=== PATIENT | female | born 1990 | race Caucasian/White ===

== ENCOUNTER 2024-03-31 14:02 | Outpatient (REF) | payer OTHER, SELFPAY ==
[2024-03-31 15:53] LABS: Internal Control Within Normal Limits; SARS-CoV-2 Ag NEGATIVE (NEGATIVE)
== END 2024-03-31 14:03 | disposition home or self-care (01) ==
LOC: LAB 14:02
PROVIDERS: PCP Family Medicine; Visit Provider Family Medicine
DX: R05.9 Cough, unspecified (principal)
CPT/HCPCS: 87811

== ENCOUNTER 2024-11-10 09:09 | Outpatient (OUT) | payer OTHER, SELFPAY ==
--- NOTE | 2024-11-10 09:16 | XR_ITS ---
The [address] [address] Patient Name: RUDOLPH CAROLINA MRN: [id number] date: 1990 Sex: F Assigned Patient Location: [facility] Current Patient Location: [facility] Accession/Order Number: [id number] Exam Date: 11/10/2024 15:03 Report Date: 11/10/2024 15:04 At the request of: MOON ADKINS MD Procedure: XR knee RT 3V RIGHT KNEE - 3 views COMPARISON: 08/15/2021 CLINICAL DATA: Right knee pain posteriorly, greater with ambulating. Recent fall. AP, lateral and internal oblique views were obtained. No fracture or dislocation is identified. There is no disproportionate joint space narrowing. There is slight squaring off of the articular margins at the posterior patella. There is no significant knee effusion or soft tissue swelling. XR/XR knee RT 3V IMPRESSION: NO ACUTE BONY FINDINGS. Impression dictated by: Lilibeth Cho M.D.11/10/2024 3:04 PM Dictation Location: [place] [address] Electronically authenticated by: [id number] Y Date: 11/10/2024 15:04
--- NOTE | 2024-11-10 09:17 | MR_ITS ---
The [address] [address] Patient Name: RUDOLPH CAROLINA MRN: [id number] date: 1990 Sex: F Assigned Patient Location: [facility] Current Patient Location: [facility] Accession/Order Number: [id number] Exam Date: 11/10/2024 15:40 Report Date: 11/10/2024 15:46 At the request of: MOON ADKINS MD Procedure: MR knee RT wo con EXAMINATION: MRI OF THE RIGHT KNEE CLINICAL DATA: Right knee pain for 2 months. No known injury. COMPARISON: none TECHNIQUE: Multiecho, multiplanar imaging was performed with use of an extremity coil. No contrast was administered. FINDINGS: Joint:Moderate joint effusion. There appears be chondromalacia involving the patella with associated mild bone marrow edema. Articular cartilage of the femur appears grossly unremarkable. Femoral condyles and tibia demonstrate no fracture or bone marrow edema. Soft tissues: Normal Quadriceps/Patellar tendon/retinaculum: Normal Muscles: Normal ACL:Normal PCL:Normal Medial Meniscus:Normal Lateral Meniscus:Normal MCL:Normal LCL complex: Normal MR/MR knee RT wo con IMPRESSION: MODERATE JOINT EFFUSION WITH CHONDROMALACIA INVOLVING THE PATELLA WITH SMALL AMOUNT OF BONE MARROW EDEMA NOTED. NO EVIDENCE OF FRACTURE OR INTERNAL DERANGEMENT IS SEEN. Impression dictated by: Desiree Camara Jr.OGuillermo11/10/2024 3:46 PM Dictation Location: [place] [address] Electronically authenticated by: [id number] Y Date: 11/10/2024 15:46
--- OUTSIDE RECORDS SUMMARY | 2024-11-10 09:29 | XMS_ITS | CCD ---
Author Organization [facility] Inform ion [facility] Care Team Providers Care Screening Specialist Name Role Phone Mariana, Beulah Breana Unavailable Unavailab le Mariana, Beulah Breana Unavailable Unavailab le Pam Zac Unavailable Unavailable Moon Swift Unavailable Unavailable Mariana, Beulah Breana Unavailable Unavailab Moon Ashraf Unavailable Unavailable Mariana, Beulah Breana Unavailable Unavailab Moon Ashraf Unavailable Unavailable Mariana, Beulah Breana Unavailable Unavailab Moon Ashraf Unavailable Unavailable PHYSICIAN, DEFAULT Unavailable Unavailable PHYSICIAN, DEFAULT Unavailable Unavailable Moon Swift Primary Care Physician [phone] Hilton Joshi Unavailable PAVEL BURNETTE Admitting Unavailable PAVEL BURNETTE Primary Care Unavailable PAVEL BURNETTE Attending Unavailable NILL ., DR LAUREN Consulting Unavailable NILL ., DR LAUREN Attending Unavailable NILL ., DR LAUREN Admitting Unavailable HOY ., DR MUSTAFA Primary Care Unavailable HOY ., DR MUSTAFA Attending Unavailable PAVEL BURNETTE Primary Care Unavailable HOY ., DR MUSTAFA Admitting Unavailable HOY ., DR MUSTAFA Consulting Unavailable PAVEL BURNETTE Primary Care Unavailable PAY ., DR HOOVER Admitting Unavailable PAY ., DR HOOVER Consulting Unavailable PAY ., DR HOOVER Attending Unavailable DIAB ., KIA Admitting Unavailable DIAB ., KIA Attending Unavailable GRECHNY .CHESTER Consulting Unavailabl e HOY ., DR MUSTAFA Primary Care Unavailable LUDIN REYES Consulting Unavailable DIAB ., KIA Consulting Unavailable NILL ., DR LAUREN Consulting Unavailable NILL ., DR LAUREN Attending Unavailable PAVEL BURNETTE Primary Care Unavailable NILL ., DR LAUREN Admitting Unavailable AGUBOSIM, MIRIAM Consulting Unavailable NIKIA JI Consulting Unavailable Allergies Allergy Classification Reported Allergen(s) Allergy Type Date of Onset Reaction(s) Facility (7 sources) tiZANidine; Translations: [tizanidine] Drug Allergy Weal (disorder) [facility] Other (2 sources) tiZANidine Drug Allergy 1 [facility] [place] [facility] Medications Current Medications Medication Drug Class(es) Dates Sig (Normalized) Sig (Original) acetaminophen 325 mg / HYDROcodone bitartrate 5 mg oral tablet (4 sources) Opioid Agonist Start: 08-29-2021 take 1 tablet by mouth every twelve hours as needed for pain HYDROcodone-Aceta minophen 5-325 MG 1 tablet as needed for pain Orally up to every 12 hrs for 5 days Aug, Active Start: 08-29-2021 take 1 tablet by ash th every four hours as needed for pain HYDROcodone-Acetaminophen 5-325 MG 1 tab let as needed for pain Orally up to every 4 hrs for 5 days Aug, Active [id number] actuat albuterol 0.09 mg/actuat metered dose inhaler (5 sources) beta2-Adrenergic Agonist Start: 07-25-2020 take 2 puff(s) by inhalation every four hours as needed Albuterol Sulfate HFA 108 (90 Base) MCG/ACT 2 puffs as needed Inhalation every 4 hrs for 30 days Jul, Active Start: 07-25-2020 take 2 puff(s) by in halation every four hours as needed Albuterol Sulfate HFA 108 (90 Base) MCG/ACT 2 puffs as needed Inhalation every 4 hrs for 30 days Jul, Active citalopram 10 mg oral tablet (10 sources) Serotonin Reuptake Inhibitor take 1 tablet by mouth every twenty-four hours CeleXA 10 MG 1 tablet Orally Once a day Active take 0.5 tablet by m outh every twenty-four hours CeleXA 40 MG 0.5 tablet Orally Once a day Active lansoprazole 30 mg delayed release oral capsule (1 source) Proton Pump Inhibitor Start: 01-05-2022 take 1 capsule by mouth once daily lansoprazole 30 mg Cap-DR 30 mg = 1 cap(s), Oral, Daily, Refills(s) 0 Start Date: 01/05/22 Status: Ordered lansoprazole 30 mg Cap-DR (1 source) Start: 01-05-2022 take 1 capsule by mouth once daily lansoprazole 30 mg Cap-DR 30 mg = 1 cap(s), Oral, Daily, Refills(s) 0 Start Date: 01/05/22 Status: Ordered methocarbamol 500 mg oral tablet (7 sources) Muscle Relaxant Start: 01-05-2022 take 1 mg by mouth three times daily methocarbamol 500 mg Tab mg tab(s), Oral, TID, Refills(s) 0 Start Date: 01/05/22 Status: Ordered take 1 tablet by ash th every four hours Methocarbamol 750 MG 1 tablet Orally trista ry 4 hrs Active oxaprozin 600 mg oral tablet (2 sources) Nonsteroidal Anti-inflammatory Drug Start: 01-05-2022 take 2 tablets by mouth once daily Daypro 600 mg Tab 1,200 mg = 2 tab(s), Oral, Daily, Refills(s) 0 Start Date: 01/05/22 Status: Ordered QUEtiapine 50 mg oral tablet (7 sources) Atypical Antipsychotic Start: 01-05-2022 take 1 tablet by mouth once daily SEROquel 50 mg Tab 50 mg = 1 tab(s), Oral, Daily, Refills(s) 0 Start Date: 01/05/22 Status: Ordered take 1 tablet by ash th every twenty-four hours SEROquel 50 MG 1 tablet at bedtime Orally Once a day Active vortioxetine 10 mg oral tablet (2 sources) Start: 01-05-2022 take 1 mg by mouth once daily Trintellix 10 mg oral tablet mg tab(s), Oral, Daily, Refills(s) 0 Start Date: 01/05/22 Status: Ordered Problems Active Problems Problem Classification Problem Date Documented Da te Episodic/Chronic Allergic reactions (2 sources) Eczema 01-10-2022 Episodic Anxiety disorders (4 sources) Anxiety; Translations: [Anxiety disorder, unspecified] Onset: 2 11-14-2020 Chronic E Codes: Fall (1 source) Fall in (into) shower or empty bathtub, initial encounter; Translations: [FALL IN SHOWER/EMPTY BATHTUB INIT] Onset: 3 Episodic Esophageal disorders (3 sources) Gastroesophageal reflux disease; Translations: [Gastro-esophageal reflux disease without esophagitis] Onset: 2 11-14-2020 Chronic Inflammatory diseases of female pelvic organs (2 sources) Chronic endometritis 11-14-2020 Chronic Joint disorders and dislocations; trauma-related (9 sources) Derangement of knee; Translations: [Chondromalacia of left patella] Onset: 1 Resolved: 2 11-14-2020 Chronic Joint disorders and dislocations; trauma-related (6 sources) Chondromalacia of right patella; Translations: [Chondromalacia patellae, right knee] Onset: 1 Resolved: 1 Chronic Mood disorders (3 sources) Depressive disorder; Translations: [Major depressive disorder, single episode, unspecified] Onset: 2 11-14-2020 Chronic Osteoarthritis (5 sources) Osteoarthritis of right knee joint; Translations: [Osteoarthritis of left knee joint] Onset: 2 Resolved: 2 11-14-2020 Chronic Other aftercare (1 source) 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; Translations: [OTH CUSTODIAL CURRENT DRUG THERAPY] Onset: 3 Episodic Other congenital anomalies (2 sources) Discoid meniscus Onset: 1 Resolved: 2 Chronic Other gastrointestinal disorders (2 sources) Irritable bowel syndrome 11-14-2020 Chronic Other gastrointestinal disorders (1 source) Altered bowel function; Translations: [Change in bowel habit] Onset: 2 Episodic Other gastrointestinal disorders (2 sources) Alteration in bowel elimination 01-10-2022 Episodic Other nervous system disorders (2 sources) Carpal tunnel syndrome 11-14-2020 Chronic Other non-traumatic joint disorders (2 sources) Effusion of right knee joint 11-14-2020 Episodic Other non-traumatic joint disorders (4 sources) Pain in left knee; Translations: [PAIN IN LEFT KNEE] Onset: 1 Resolved: 1 Episodic Other nutritional; endocrine; and metabolic disorders (1 source) Obese class I; Translations: [Body mass index (BMI) 33.0-33.9, adult] Onset: 2 Chronic Other nutritional; endocrine; and metabolic disorders (2 sources) Body mass index 30+ - obesity 01-10-2022 Chronic Residual codes; unclassified (1 source) Tobacco user; Translations: [Tobacco use] Onset: 2 Episodic Residual codes; unclassified (2 sources) Chronic pain 11-14-2020 Episodic Residual codes; unclassified (2 sources) Nicotine-filled electronic cigarette user 01-10-2022 Episodic Substance-related disorders (2 sources) Nicotine dependence, other tobacco product, uncomplicated; Translations: [Nicotine dependence, cigarettes, uncomplicated] Onset: 2 Chronic Superficial injury; contusion (2 sources) Contusion of left knee, initial encounter; Translations: [Contusion of left hip, initial encounter] Onset: 3 Episodic Unclassified (1 source) Pelvic and perineal pain / R10.2(ICD-10) Onset: 7 Unclassified (1 source) Chronic inflammatory disease of uterus / N71.1(ICD-10) Onset: 7 Unclassified (1 source) Unspecified dyspareunia / N94.10(ICD-10) Onset: 7 Unclassified (1 source) Stress incontinence (female) (male) / N39.3(ICD-10) Onset: 7 Unclassified (1 source) Candidiasis of vulva and vagina / B37.3(ICD-10) Onset: 7 Unclassified (3 sources) CONTACT W/AND (SUSP) EXPOS COVID-19; Translations: [CONTACT W/AND (SUSP) EXPOS COVID-19] Onset: 2 Viral infection (1 source) COVID-19; Translations: [COVID-19] Onset: 2 Past or Other Problems Problem Classification Problem Date Documented Da te Episodic/Chronic Anxiety disorders (3 sources) Excessive crying of child, adolescent or adult; Translations: [EXCESSIVE CRYING CHILD ADOLES/ADULT] Onset: 01-22-2022 Episodic Gastrointestinal hemorrhage (10 sources) Hemorrhage of rectum and anus; Translations: [Hemorrhage of anus and rectum] Onset: 01-10-2022 Episodic Hemorrhoids (4 sources) Hemorrhoids; Translations: [Unspecified hemorrhoids] Onset: 01-10-2022 Episodic Joint disorders and dislocations; trauma-related (2 sources) Other tear of lateral meniscus, current injury, left knee, initial encounter Onset: 08-15-2021 Resolved: 09-14-2021 Episodic Noninfectious gastroenteritis (1 source) Noninfective gastroenteritis and colitis, unspecified; Translations: [NONINFECTIVE GE AND COLITIS UNS] Onset: 02-14-2022 Episodic Other aftercare (1 source) [facility] (current) use of aspirin; Translations: [CUSTODIAL CURRENT USE OF ASPIRIN] Onset: 01-23-2022 Episodic Other gastrointestinal disorders (1 source) Change in bowel habit; Translations: [CHANGE IN BOWEL HABIT] Onset: 02-14-2022 Episodic Other non-traumatic joint disorders (1 source) Pain in right knee Onset: 08-15-2021 Resolved: 08-15-2021 Episodic Residual codes; unclassified (2 sources) Other specified postprocedural states Onset: 08-29-2021 Resolved: 09-14-2021 Episodic Residual codes; unclassified (1 source) Acquired absence of other specified parts of digestive tract; Translations: [ACQ ABSENCE OTH PART DIGESTV TRACT] Onset: 02-14-2022 Episodic Residual codes; unclassified (1 source) Tobacco use; Translations: [TOBACCO USE] Onset: 02-14-2022 Episodic Unclassified (1 source) CONTACT W/AND (SUSP) EXPOS COVID-19; Translations: [CONTACT W/AND (SUSP) EXPOS COVID-19] Onset: 03-06-2022 Results Test Name Value Interpretation Reference Range Facility XR KNEE LT 4V or >on 023 XR KNEE LT 4V or > EXAM: XR KNEE LT 4V or >, XR HIP LT 2 3V W PELVIS HISTORY: Pain COMPARISON: None. TECHNIQUE: 3 views of the left knee were obtained. AP view of the pelvis was obtained along with AP and oblique views of the left hip. FINDINGS: There is no radiographic evidence of an acute fracture or subluxation. Joint effusion is present in the left knee. IMPRESSION: No acute fracture or subluxation. Small left knee joint effusion. Electronically authenticated by: LUDIN REYES Date: 2022-12-18 14:02 Normal [facility] Covid-19 PCR (CVDTB)on 02-08 SARS-CoV-2 (COVID-19) RNA GIA+probe Ql (Unsp spec) Detected Critically abnormal NOT DETECTED [facility] Comment on above: Result Comment: This test is not yet approved or cleared by the [place] FDA. When there are no FDA-approved or cleared tests available, and other criteria are met, FDA can make tests available under an emergency access mechanism called an Emergency Use Authorization (EUA). The EUA for this test is supported by the [employer] of Health and Human Service's (HHS's) declaration that circumstances exist to justify the emergency use of in vitro diagnostics for the detection and/or diagnosis of the virus that causes COVID-19. This EUA will remain in effect (meaning this test can be used) for the duration of the COVID-19 declaration justifying emergency of IVDs, unless it is terminated or revoked by FDA (after which the test may no longer be used). Performed By: #### C VDTB ####[facility] [id number] [address]Dr. Adeel Hassan SYMPTOMATIC COVID-19 ANTIGEN on 03-06-2022 EUA Statement SEE BELOW Normal [facility] Comment on above: Result Comment: This test has not been FDA cleared or approved, but has been authorized by the FDA under an Emergency Use Authorization (EUA) for use by authorized laboratories certified under CLIA that meet the requirements to perform moderate or high complexity testing. This test has been authorized only for the detection of proteins from SARS-CoV-2, not for any other viruses or pathogens. The emergency use of this test is authorized for the duration of the declaration that circumstances exist justifying the authorization of emergency use of in vitro diagnostic tests for detection and/or diagnosis of Covid-19 under section 564(b)(1) of the Act, 21 U.S.C. 360bbb-3(b)(1), unless the declaration is terminated or authorization is revoked sooner. Performed By: #### C VDAGS #### [facility] [address] [place], [place] [address] Dr. Adeel Hassan SARS-CoV-2 (COVID-19) RNA GIA+probe Ql (Unsp spec) Negative Normal NEGATIVE [facility] Comment on above: Performed By: #### C VDAGS #### [facility] [address] [address] [address] Adeel Hassan Ambulatory Visit Summaryon 0 02-27-2022 Ambulatory Visit Summary RUDOLPH [place] :1990 Visit Date:02/27/2022 Ambulatory Visit Instructions Your Care Team Attending Physician - Leonidas MASON MD Primary Care Physician - Moon Swift MD This Is Your Medications List Contact prescribing physician if questions or concerns lansoprazole (lansoprazole 30 mg Cap-DR) methocarbamol (methocarbamol 500 mg Tab) oxaprozin (Daypro 600 mg Tab) quetiapine (SEROquel 50 mg Tab) vortioxetine (Trintellix 10 mg oral tablet) Procedures Performed Colonoscopy (02/07/2022), Abdominal hysterectomy (02/12/2020), Laparoscopic salpingectomy (10/02/2019), D&C - Dilatation and curettage (05/03/2017), Cholecystectomy (07/14/2014), section (2012), Tubal ligation (2012), section (2010), section (2009), Arthroscopy of knee, Excision of ganglion cyst, Exploratory laparotomy, Labial frenoplasty, Meniscal repair, Total bilateral salpingectomy. Medications What How Much When Instructions Unchanged lansoprazole (lansoprazole 30 mg Cap-DR) 1 Capsules By Mouth Every day Contact prescribing physician if questions or concerns Unchanged methocarbamol (methocarbamol 500 mg Tab) By Mouth 3 times a day Contact prescribing physician if questions or concerns Unchanged oxaprozin (Daypro 600 mg Tab) 2 Tablets By Mouth Every day Contact prescribing physician if questions or concerns Unchanged quetiapine (SEROquel 50 mg Tab) 1 Tablets By Mouth Every day Contact prescribing physician if questions or concerns Unchanged vortioxetine (Trintellix 10 mg oral tablet) By Mouth Every day Contact prescribing physician if questions or concerns Allergies Zanaflex (Hives) Problems Ongoing - Any problem that you are currently receiving treatment for. Anxiety BMI 33.0-33.9,adult BRBPR (bright red blood per rectum) Carpal tunnel syndrome on both sides Change in bowel habits Chronic endometritis Chronic neck and back pain Depression Eczema Effusion of right knee GERD (gastroesophageal reflux disease) H/O total hysterectomy Hemorrhoids Irritable bowel syndrome Osteoarthritis of right knee Other internal derangements of left knee Rectal bleeding Status post bilateral salpingectomy Vapes nicotine containing substance Aditya Baig [facility] General Surgery Office/Clini c Noteon 02-27-2022 General Surgery Office/Clinic Note Chief Complaint post operative follow up HPI Staff 20 day post operative follow up post colonoscopy with sigmoid biopsy. Continues with intermittent rectal bleeding but feels overall this has improved. History of Present Illness s/p colonoscopy for rectal bleeding; doing well, mild episodes since scope; had mild sigmoid colitis and prominent rectal veins; biopsy revealed nonspecific colitis; no ulceration; patient no longer on NSAIDs. Review of Systems ROS - Provider Constitutional: no fever, no sweats, no weight loss. Eyes: no glasses, no blurred vision, no visual loss. ENMT: no dentures, no hoarseness, no swallowing difficulties, no hearing loss, no ear infection(s), no nose bleeds. Cardiovascular: normal blood pressure, no chest pain, regular heartbeat, no heart murmur. Respiratory: no shortness of breath, no cough, no asthma, no wheezing. Gastrointestinal: no nausea, no vomiting, no diarrhea, no constipation, no blood in stool, no change in bowel habits, no abdominal pain, no hepatitis. Genitourinary: no kidney stones, no urine infection, no dysuria. Musculoskeletal: no pain, no weakness. Skin: no changing moles, no rash, no skin lumps. Neurologic: no seizures, no epilepsy, no headache. Psychiatric: no emotional or psychiatric problem. Heme/Lymph: no bleeding problems, no anemia, no blood clots, no transfusions. Allergy/Immunologic: no swollen lymph nodes/glands, no IV drug abuse. Other: Additional ROS info: Except as noted in the above Review of Systems and in the History of Present Illness, all other systems have been reviewed and are negative or noncontributory. Assessment/Plan 1. BRBPR (bright red blood per rectum) (K62.5: Hemorrhage of anus and rectum) likely secondary to irritation of rectal veins; mild sigmoid colitis may be due to prep; no NSAID use; recommend high fiber diet and daily fiber supplement; call with problems/questions. Follow-up No qualifying data available Problem List/Past Medical History Ongoing Anxiety BMI 33.0-33.9,adult BRBPR (bright red blood per rectum) Carpal tunnel syndrome on both sides Change in bowel habits Chronic endometritis Chronic neck and back pain Depression Eczema Effusion of right knee GERD (gastroesophageal reflux disease) H/O total hysterectomy Hemorrhoids Irritable bowel syndrome Osteoarthritis of right knee Other internal derangements of left knee Rectal bleeding Status post bilateral salpingectomy Vapes nicotine containing substance Historical No qualifying data Procedure/Surgical History Colonoscopy (02/07/2022), Abdominal hysterectomy (02/12/2020), Laparoscopic salpingectomy (10/02/2019), D&C - Dilatation and curettage (05/03/2017), Cholecystectomy (07/14/2014), section (2012), Tubal ligation (2012), section (2010), section (2009), Arthroscopy of knee, Excision of ganglion cyst, Exploratory laparotomy, Labial frenoplasty, Meniscal repair, Total bilateral salpingectomy. Medications Daypro 600 mg Tab, 1200 mg= 2 tab(s), Oral, Daily lansoprazole 30 mg Cap-DR, 30 mg= 1 cap(s), Oral, Daily methocarbamol 500 mg Tab, Oral, TID SEROquel 50 mg Tab, 50 mg= 1 tab(s), Oral, Daily Trintellix 10 mg oral tablet, Oral, Daily Allergies Zanaflex (Hives) Social History Alcohol - Denies Alcohol Use, 01/10/2022 Substance Abuse Current, Marijuana, 1-2 times per week, 01/10/2022 Tobacco Former smoker, quit more than 30 days ago Tobacco Use:. Smokeless tobacco user within last 30 days Smokeless Tobacco Use:. Cigarettes, Vaping, Started age 15.0 Years. Yes, 01/10/2022 Family History Arthritis: Mother, Grandparent and Grandparent. COPD: Grandparent and Grandparent. Diabetes mellitus type 2: Grandparent and Grandparent. Heart disease: Grandparent. Hypercholesterolemia: Father. Hypertension: Father and Grandparent. Kidney disease: Grandparent. Primary malignant neoplasm of colon: Grandparent and Grandparent. Normal [facility] Comment on above: Result Comment: Elec tronically Signed By: NAHOMY HODGE, Leonidas Cuellar\Date and Time Signed: 02/27/22 16:32 EDT Pathology Noteon 02-09-2022 Pathology Note [id number]# 1.00CD:[address] [facility] Outside Colonoscopyon 2021 Outside Colonoscopy [id number] .00CD:[address] [facility] Lab Reportson 02-06-2022 Lab Reports [id number] .00CD:[address] [facility] Covid-19 PCR (CVDTB)on 01-08 SARS-CoV-2 (COVID-19) RNA GIA+probe Ql (Unsp spec) Not detected Normal NOT DETECTED [facility] Comment on above: Result Comment: This test is not yet approved or cleared by the [place] FDA. When there are no FDA-approved or cleared tests available, and other criteria are met, FDA can make tests available under an emergency access mechanism called an Emergency Use Authorization (EUA). The EUA for this test is supported by the [employer] of Health and Human Service's (HHS's) declaration that circumstances exist to justify the emergency use of in vitro diagnostics for the detection and/or diagnosis of the virus that causes COVID-19. This EUA will remain in effect (meaning this test can be used) for the duration of the COVID-19 declaration justifying emergency of IVDs, unless it is terminated or revoked by FDA (after which the test may no longer be used). When diagnostic testing is negative, the possibility of a false negative should be considered in the context of a patient's recent exposures and the presence of clinical signs and symptoms consistent with SARS-CoV-2. Performed By: #### [facility] #### [facility] [address] [place] [address] Dr. Adeel Hassan Pre-Certification Formon Pre-Certification Form [id number]# 1.00CD:[address] [facility] ACETAMINOPHENon 01-22-2022 Acetaminophen [Mass/Vol] ug/mL Critically low 10.0-30.0 [facility] Comment on above: Performed By: #### C MP, SALYC, ACET, ETH #### [facility] [address] [address] [address] Adeel Hassan CBC AUTO DIFFon 01-22-2022 BASO # 0.0 103/ul Normal 0.0-0.1 [facility] Comment on above: Performed By: #### C BC #### [facility] [address] [address] [address] Adeel Hassan Basophils/100 WBC (Bld) 0.3 % Normal 0.2-2.0 [facility] Comment on above: Performed By: #### C BC #### [facility] [address] [address] [address] Adeel Hassan EO # 0.1 103/ul Normal 0.0-0.7 [facility] Comment on above: Performed By: #### C BC #### [facility] [address] [place] [address] Dr. Adeel Hassan Eosinophils/100 WBC (Bld) 0.7 % Critically low 0.9-7.0 [facility] Comment on above: Performed By: #### C BC #### [facility] [address] [place] [address] Dr. Adeel Hassan Erythrocyte distribution width (RBC) [Ratio] 12.4 % Normal 11.0-15.0 [facility] Comment on above: Performed By: #### C BC #### [facility] [address] [place] [address] Dr. Adeel Hassan Hematocrit (Bld) [Volume fraction] 39.1 % Normal 36.0-48.0 [facility] Comment on above: Performed By: #### C BC #### [facility] [address] [place] [address] Dr. Adeel Hassan Hemoglobin (Bld) [Mass/Vol] 13.6 g/dL Normal 12.0-16.0 [facility] Comment on above: Performed By: #### C BC #### [facility] [address] [place] [address] Dr. Adeel Hassan IG # 0.03 10e3/ul Normal 0.00-0.03 [facility] Comment on above: Performed By: #### C BC #### [facility] [address] [place] [address] Dr. Adeel Hassan IG % 0.3 % Normal 0.0-0.5 [facility] Comment on above: Performed By: #### C BC #### [facility] [address] [place] [address] Dr. Adeel Hassan LYMPH # 2.1 103/ul Normal 1.2-3.8 [facility] Comment on above: Performed By: #### C BC #### [facility] [address] [place] [address] Dr. Adeel Hassan Lymphocytes/100 WBC (Bld) 20.8 % Normal 20.5-60.0 [facility] Comment on above: Performed By: #### C BC #### [facility] [address] [place] [address] Dr. Adeel Hassan MANUAL DIFF REQ NO Normal [facility] [facility] Comment on above: Performed By: #### C BC #### [facility] [address] [place] [address] Dr. Adeel Hassan MCH (RBC) [Entitic mass] 33.1 pg Normal 26.7-34.0 [facility] Comment on above: Performed By: #### C BC #### [facility] [address] [place] [address] Dr. Adeel Hassan MCHC (RBC) [Mass/Vol] 34.8 g/dL Normal 29.9-35.2 [facility] Comment on above: Performed By: #### C BC #### [facility] [address] [place] [address] Dr. Adeel Hassan MCV (RBC) [Entitic vol] 95.1 fL Normal 81.0-99.0 [facility] Comment on above: Performed By: #### C BC #### [facility] [address] [place] [address] Dr. Adeel Hassan MONO # 0.8 103/ul Normal 0.3-0.8 [facility] Comment on above: Performed By: #### C BC #### [facility] [address] [address] [address] Adeel Hassan Monocytes/100 WBC (Bld) 7.6 % Normal 1.7-12.0 [facility] Comment on above: Performed By: #### C BC #### [facility] [address] [address] [address] Adeel Hassan NEUT # 7.2 103/ul Critically high 1.4-6.5 [facility] Comment on above: Performed By: #### C BC #### [facility] [address] [address] [address] Adeel Hassan Neutrophils/100 WBC (Bld) 70.3 % Normal 43.0-75.0 [facility] Comment on above: Performed By: #### C BC #### [facility] [address] [place] [address] Dr. Adeel Hassan Platelet mean volume (Bld) [Entitic vol] 8.4 fL Critically low 9.5-13.5 [facility] Comment on above: Performed By: #### C BC #### [facility] [address] [address] [address] Adeel Hassan PLT 269 103/ul Normal 150-450 [facility] Comment on above: Performed By: #### C BC #### [facility] [address] [place] [address] Dr. Adeel Hassan RBC 4.11 106/ul Critically low 4.20-5.40 [facility] Comment on above: Performed By: #### C BC #### [facility] [address] [place] [address] Dr. Adeel Hassan WBC 10.2 103/ul Normal 4.0-11.0 [facility] Comment on above: Performed By: #### C BC #### [facility] [address] [place] [address] Dr. Adeel Hassan DRUG SCREEN RAPID (URINE)on 01-22-2022 AMP Negative Normal NEGATIVE [facility] Comment on above: Performed By: #### D RUGRPD ####[facility] [address] [id number]. Annamiguel angel Hassan BAR Negative Normal NEGATIVE [facility] Comment on above: Performed By: #### D RUGRPD ####[facility] [address] [id number]. Adeel Hassan BUP Negative Normal NEGATIVE [facility] Comment on above: Performed By: #### D RUGRPD ####[facility] [address] [id number]. Adeel Hassan BZO Negative Normal NEGATIVE [facility] Comment on above: Performed By: #### D RUGRPD ####[facility] [address] [place], [place] [address]Dr. Adeel Hassan JULIANNE Negative Normal NEGATIVE [facility] Comment on above: Performed By: #### D RUGRPD ####[facility] [address] [place], [place] [address]Dr. Adeel Hassan CUT-OFFS SEE BELOW Normal [facility] Comment on above: Result Comment: AMP (Amphetamine): 500ng/mL, BAR (Barbituates): 200 ng/mL, BZO (Benzodiazepines): 150 ng/mL, BUP (Buprenorphine): 10 ng/mL, JULIANNE (Cocaine): 150 ng/mL, mAMP (Methamphetamine): 500 ng/mL, MTD (Methadone): 200 ng/mL, OPI (Opiates): 100 ng/mL, OXY (Oxycodone): 100 ng/mL, PCP (Phencyclidine): 25 ng/mL, PPX (Propoxyphene): 300 ng/mL, THC (Cannabinoids): 50 ng/mL, TCA (Trycyclic Antidepressants): 300 ng/mL Performed By: #### D RUGRPD ####[facility] [address] [place], [place] [id number]. Adeel Hassan DRUG CUT HEADER DRUG CLASS TEST SYSTEM CUT-OFF CONCENTRATIONS ARE FOLLOWS: Normal [facility] Comment on above: Performed By: #### D RUGRPD ####[facility] [address] [place], [place] [id number]. Adeel Hassan mAMP Negative Normal NEGATIVE [facility] Comment on above: Performed By: #### D RUGRPD ####[facility] [address] [address]Dr. Adeel Hassan MTD Negative Normal NEGATIVE [facility] Comment on above: Performed By: #### D RUGRPD ####[facility] [address] [address]Dr. Adeel Hassan OPI Negative Normal NEGATIVE [facility] Comment on above: Performed By: #### D RUGRPD ####[facility] [address] [address]. Yimiguel angel Hassan OXY Negative Normal NEGATIVE [facility] Comment on above: Performed By: #### D RUGRPD ####[facility] [address] [address]Dr. Adeel Hassan PCP Negative Normal NEGATIVE [facility] Comment on above: Performed By: #### D RUGRPD ####[facility] [address] [address]Dr. Adeel Hassan PPX Negative Normal NEGATIVE [facility] Comment on above: Performed By: #### D RUGRPD ####[facility] [address] [address]Dr. Adeel Hassan TCA Negative Normal NEGATIVE [facility] Comment on above: Performed By: #### D RUGRPD ####[facility] [address] [address]Dr. Adeel Hassan THC Positive Abnormal NEGATIVE [facility] Comment on above: Performed By: #### D RUGRPD ####[facility] [address] [address]Dr. Annamiguel angel Hassan ETHANOL (BLD ALC)on 01-23-20 22 ALC NOTE NOTE: 80 mg/dl is th e legal limit for a blood alcohol level Normal [facility] Comment on above: Performed By: #### C MP, SALYC, ACET, ETH #### [facility] [address] [address] [address] Adeel Hassan Ethanol [Mass/Vol] mg/dL Normal [facility] Comment on above: Performed By: #### C MP, SALYC, ACET, ETH #### [facility] [address] [place] [address] Dr. Adeel Hassan PROF 14(COMP METB)on 022 Albumin [Mass/Vol] 3.9 g/dL Normal 3.4-5.0 [facility] Comment on above: Performed By: #### C MP, SALYC, ACET, ETH #### [facility] [address] [place] [address] Dr. Adeel Hassan Albumin/Globulin [Mass ratio] 1.0 {ratio} Normal [facility] Comment on above: Performed By: #### C MP, SALYC, ACET, ETH #### [facility] [address] [place] [address] Dr. Adeel Hassan ALP [Catalytic activity/Vol] 84 U/L Normal 46-116 [facility] Comment on above: Performed By: #### C MP, SALYC, ACET, ETH #### [facility] [address] [place] [address] Dr. Adeel Hassan ALT [Catalytic activity/Vol] 45 U/L Normal 14-59 [facility] Comment on above: Performed By: #### C MP, SALYC, ACET, ETH #### [facility] [address] [place] [address] Dr. Adeel Hassan Anion gap [Moles/Vol] 16.1 mmol/L Normal [facility] Comment on above: Performed By: #### C MP, SALYC, ACET, ETH #### [facility] [address] [place] [address] Dr. Adeel Hassan AST [Catalytic activity/Vol] 23 U/L Normal 15-37 [facility] Comment on above: Performed By: #### C MP, SALYC, ACET, ETH #### [facility] [address] [place] [address] Dr. Adeel Hassan Bilirubin [Mass/Vol] 0.5 mg/dL Normal 0.2-1.0 [facility] Comment on above: Performed By: #### C MP, SALYC, ACET, ETH #### [facility] [address] [place] [address] Dr. Adeel Hassan Calcium [Mass/Vol] 8.9 mg/dL Normal 8.5-10.1 [facility] Comment on above: Performed By: #### C MP, SALYC, ACET, ETH #### [facility] [address] [address] [address] Adeel Hassan Chloride [Moles/Vol] 107 mmol/L Normal 98-107 [facility] Comment on above: Performed By: #### C MP, SALYC, ACET, ETH #### [facility] [address] [address] [address] Adeel Hassan CO2 [Moles/Vol] 24.8 mmol/L Normal 21.0-32.0 [facility] Comment on above: Performed By: #### C MP, SALYC, ACET, ETH #### [facility] [address] [address] [address] Adeel Hassan Creatinine [Mass/Vol] 0.71 mg/dL Normal 0.55-1.02 [facility] Comment on above: Performed By: #### C MP, SALYC, ACET, ETH #### [facility] [address] [address] [address] Adeel Hassan EGFR-AF MALDIVIAN >60 Normal >=60 [facility] Comment on above: Performed By: #### C MP, SALYC, ACET, ETH #### [facility] [address] [address] [address] Adeel Hassan EGFR-NON AF MALDIVIAN >60 Normal >=60 [facility] Comment on above: Performed By: #### C MP, SALYC, ACET, ETH #### [facility] [address] [address] [address] Adeel Hassan Globulin (S) [Mass/Vol] 4.0 g/dL Normal [facility] Comment on above: Performed By: #### C MP, SALYC, ACET, ETH #### [facility] [address] [address] [address] Adeel Hassan Glucose [Mass/Vol] 102 mg/dL Normal 74-106 [facility] Comment on above: Performed By: #### C MP, SALYC, ACET, ETH #### [facility] [address] [place] [address] Dr. Adeel Hassan Potassium [Moles/Vol] 3.9 mmol/L Normal 3.5-5.1 [facility] Comment on above: Performed By: #### C MP, SALYC, ACET, ETH #### [facility] [address] [place] [address] Dr. Adeel Hassan Protein [Mass/Vol] 7.9 g/dL Normal 6.4-8.2 [facility] Comment on above: Performed By: #### C MP, SALYC, ACET, ETH #### [facility] [address] [place] [address] Dr. Adeel Hassan Sodium [Moles/Vol] 144 mmol/L Normal 136-145 [facility] Comment on above: Performed By: #### C MP, SALYC, ACET, ETH #### [facility] [address] [place] [address] Dr. Adeel Hassan Urea nitrogen [Mass/Vol] 11.0 mg/dL Normal 7.0-18.0 [facility] Comment on above: Performed By: #### C MP, SALYC, ACET, ETH #### [facility] [address] [place] [address] Dr. Adeel Hassan Urea nitrogen/Creatinine [Mass ratio] 15.5 mg/mg Normal [facility] Comment on above: Performed By: #### C MP, SALYC, ACET, ETH #### [facility] [address] [place] [address] Dr. Adeel Hassan SALICYLATEon 01-22-2022 SALICYLATE 3.1 mg/dL Normal <=19.9 [facility] Comment on above: Performed By: #### C MP, SALYC, ACET, ETH #### [facility] [address] [place] [address] Dr. Adeel Hassan Consent for Procedure/Surger yon 01-11-2022 Consent for Procedure/Surgery [id number] .[id number]:127 Normal [facility] Facesheeton 01-11-2022 Facesheet [id number] .[id number]:[address] [facility] Physician Referralon 022 Physician Referral [id number] .[id number]:[address] [facility] CNCOon 02-24-2019 CNCO Letter Text Normal [facility] CNOVon 01-21-2019 CNOV Office Visit (LOORRM ) RUDOLPH CAROLINA ([id number]) 1990 F Date Time Provider Department 01/21/19 1:00 PM CEE DAWSON) LOORRM During your visit today, we recorded the following information about you: Cee Dawson PA-C 01/21/2019 1:32 PM Signed OPERATIVE REPORT: PROCEDURE: Right wrist volar ganglion cyst excision DATE: 01/05/2019 SURGICAL PATHOLOGY: Soft tissue, right volar wrist, excision - Ganglion cyst. She is 2 weeks postop. Patient states that she had been wearing her splint at all times until a couple of days ago. She removed it because it was causing her pain at the thumb. She states she has some numbness and tingling over the incision. She also complains of some stiffness at the thumb. She has been taking her pain medication which has helped with the pain. PHYSICAL EXAM: On examination of the right wrist, incision is healing well with on signs of infection . Sensation on the ulnar, median, radial, superficial radial nerve distributions are intact. AIN, PIN, ulnar motor are intact. Wrist extension to flexion is 30? to 40?. There is full pronation and supination. Negative Tinel's at the incision. Brisk capillary refill. Radial pulse 2+. 2 point discrimination at the ulnar, median, radial nerve distributions are less than 4 mm PLAN: Splint was removed a couple of days ago. At this point, she may wean onto a regular activities, advised her to start lightly and to try not to overdo it. I explained to her that now that he will start using her hand more she will slowly regain motion of his fingers, I will also put an order for occupational therapy to work on range of motion, stretching, swelling modalities and scar desensitization. She may wash the incision with warm soapy water but do not submerge it until fully healed. Explained to her that the numbness and tingling over the volar aspect of the thumb will continue to get better. Patient agreed and understood. Follow up in [address] Vic Dawson PA-C Referring Provider: MITA CALLEJAS [[id number]] Allergies As of Date: 01/21/2019 Noted Allergy Reaction TIZANIDINE 02/14/2017 16 - Unknown Comments: Muscle spasms Date Reviewed: 01/21/2019 Reviewed by: Fariba Madden Ma - Fully Assessed Reason for Visit: Post Op [174] Primary Visit Diagnosis:Post-operat kalani state [Z98.890] Order(s):CONSULT TO NOZZLE WORKER [[id number]] Order #: [id number]: 1 Prescriptions as of 01/21/2019 Sig: LANSOPRAZOLE 30 MG CAPSULE,DE* Take 30 mg by mouth. DIAZEPAM 5 MG TABLET Take 5 mg by mouth every 6 ho* ACETAMINOPHEN 325 MG CAPSULE Take by mouth. MELATONIN 1 MG TABLET Take by mouth. Problem List As Of Date 01/21/2019 Noted Resolved Ganglion cyst of volar aspect of right wrist [M*INVALID FOR* More... Right carpal tunnel syndrome [G56.01] INVALID FOR* Gastroesophageal reflux disease without esophag*INVALID FOR* More... Post-operative state [Z98.890] INVALID FOR* Encounter Status:Closed by CEE DAWSON on 01/21/19 Normal [facility] PROGRESSon 01-21-2019 Protein mass conc HNO ID: [id number] Author: Cee Dawson (Pa) Service: ? Author Type: Physician Pipe Liner Type: Progress Notes Filed: 01/21/2019 1:32 PM Note Text: OPERATIVE REPORT: PROCEDURE: Right wrist volar ganglion cyst excision DATE: 01/05/2019 SURGICAL PATHOLOGY: Soft tissue, right volar wrist, excision - Ganglion cyst. She is 2 weeks postop. Patient states that she had been wearing her splint at all times until a couple of days ago. She removed it because it was causing her pain at the thumb. She states she has some numbness and tingling over the incision. She also complains of some stiffness at the thumb. She has been taking her pain medication which has helped with the pain. PHYSICAL EXAM: On examination of the right wrist, incision is healing well with on signs of infection . Sensation on the ulnar, median, radial, superficial radial nerve distributions are intact. AIN, PIN, ulnar motor are intact. Wrist extension to flexion is 30? to 40?. There is full pronation and supination. Negative Tinel's at the incision. Brisk capillary refill. Radial pulse 2+. 2 point discrimination at the ulnar, median, radial nerve distributions are less than 4 mm PLAN: Splint was removed a couple of days ago. At this point, she may wean onto a regular activities, advised her to start lightly and to try not to overdo it. I explained to her that now that he will start using her hand more she will slowly regain motion of his fingers, I will also put an order for occupational therapy to work on range of motion, stretching, swelling modalities and scar desensitization. She may wash the incision with warm soapy water but do not submerge it until fully healed. Explained to her that the numbness and tingling over the volar aspect of the thumb will continue to get better. Patient agreed and understood. Follow up in [address] Vic Dawson PA-C [facility] ANES Amita 01-05-2019 ANES POST HNO ID: [id number] Author: Jean Rowan Service: Anesthesiology Author Type: Anesthesiologist Type: Anesthesia PostOp Filed: 01/05/2019 4:38 PM Note Text: POST ANESTHESIA EVALUATION NOTE SERVICE DATE: 01/05/2019 SERVICE TIME: 4:38 PM : 1990 Vitals: 01/05/19 1325 01/05/19 1602 Temp: 36.6 ?C (97.9 ?F) 36.4 ?C (97.5 ?F) 01/05/19 13201/05/19 1602 01/05/19 16101/05/19 1630 BP: 111/68 147/65 108/62 125/70 01/05/19 1325 01/05/19 1602 01/05/19 16101/05/19 1630 Pulse: 82 103 93 87 01/05/19 1325 01/05/19 1602 01/05/19 1615 01/05/19 1630 Resp: 16 16 16 16 01/05/19 13201/05/19 1602 01/05/19 16101/05/19 1630 SpO2: 98% 99% 98% 99% Validated Vital Signs: Yes POST ANES STATUS: No apparent anesthetic complications. The patient is appropriately hydrated with stable respiratory and cardiovascular status. Patient has safe and adequate airway control. The patient has appropriate pain relief and no significant post operative nausea or vomiting. The patient has achieved baseline mental status. Intra-Operative Events: No Significant Anesthesia Events Further assessment by Anesthesia Service: None Other Remarks: SIGNATURE: Jean Rowan MD PATIENT NAME: Rudolph Carolina DATE: January 05, 2019 TIME: 4:38 PM PAGER/CONTACT #: Aditya [facility] ANES PREOPon 01-05-2019 ANES PREOP HNO ID: [id number] Author: Jean Rowan Service: Anesthesiology Author Type: Anesthesiologist Type: Anesthesia PreOp Filed: 01/05/2019 1:19 PM Note Text: ANESTHESIOLOGY DAY OF SURGERY NOTE SERVICE DATE: 01/05/2019 SERVICE TIME: .,now : 1990 Procedure(s) (LRB): EXCISION GANGLION WRIST (Right) Surgeon(s): Mita Callejas Estimated body mass index is 29.23 kg/m? as calculated from the following: Height as of 12/24/18: 160 cm (5' 3 ). Weight as of 12/24/18: 74.8 kg (165 lb). Most recent hematocrit and potassium results: No results found for this basename: HCT,HEMATOCRIT,K,POTA SSIUM ANES DOS/PREOP NOTE: Vitals: There were no vitals filed for this visit. ACTIVE PROBLEM LIST Ganglion Cyst of Volar Aspect of Right Wrist Right Carpal Tunnel Syndrome Gastroesophageal Reflux Disease Without Esophagitis PAST MEDICAL HISTORY Diagnosis Date - Anxiety - GERD (gastroesophageal reflux disease) PAST SURGICAL HISTORY Procedure Laterality Date - SECTION HX 2009,2011, 2012 - CHOLECYSTECTOMY 2010 - COSMETIC LABIAPLASTY 2019 - ELBOW SURGERY HX 2018 right ulnar nerve decompression - KNEE ARTHROSCOPY 2017 right - PAST SURGICAL HISTORY OF 2006 tumor removed from right finger - PAST SURGICAL HISTORY OF 2016 ganglion cyst left hand - PAST SURGICAL HISTORY OF 3 exploratory lap - PAST SURGICAL HISTORY OF 2013 tubaligation No family history on file. Social History: Social History Tobacco Use - Smoking status: Smoker, Current Status Unknown Packs/day: 0.50 Years: 15.00 Pack years: 7.50 - Smokeless tobacco: Never Used Substance Use Topics - Alcohol use: Never Frequency: Never - Drug use: Never No current facility-administered medications on file prior to encounter. Current Outpatient Medications on File Prior to Encounter: lansoprazole (PREVACID) 30 mg capsule Take 30 mg by mouth. diazePAM (VALIUM) 5 mg tablet Take 5 mg by mouth every 6 hours as needed. acetaminophen (TYLENOL) 325 mg cap Take by mouth. melatonin 1 mg tablet Take by mouth. Current Facility-Administered Medications: lidocaine 10 mg/mL (1 %) 1-2 mg injection (XYLOCAINE) 0.1-0.2 mL INTRADERMAL PRN Yirka (Pa) Sakshi lactated ringers infusion 5-30 mL/hr INTRAVENOUS CONTINUOUS Yirka (Pa) Sakshi Last Rate: 30 mL/hr at 01/05/19 1330 30 mL/hr at 01/05/19 1330 ceFAZolin iv piggyback 2 g in D5W (iso-osmotic) 100 mL (ANCEF) 2 g INTRAVENOUS Pre-Op Once Yirka (Pa) Sakshi Allergies: ALLERGIES Allergen Reactions - Tizanidine Unknown Muscle spasms DOS EXAM: Adequate NPO Status: Yes Anesthetic Risks, Benefits, Alternatives, Personnel and Consent Discussed: Yes Patient agrees to proceed: Yes Previous Anesthesia: No history of adverse event Airway Assessment: MP 2; Neck ROM: Full ROM without neurologic symptoms; Airway Evaluation: No significant abnormalities Symptoms of Sleep Apnea: None Dentition: Teeth intact Additional Physical Exam: Lungs: Lungs clear to auscultation. Good diaphragmatic excursion. Cardiac: normal S1 and S2; no rubs, no murmurs, and no gallops Additional Pertinent Findings: N/A Blood Products: Not anticipated for this procedure Anesthetic Plan: General Anesthetic Monitoring: Standard ASA Monitors Pain Management Plan: Parenteral or Oral ASA Class: 2 Other Medical Problems: None Chronic Beta Radha medication administered within 24 hours: N/A I have interviewed and examined the patient. I have reviewed the medical record and/or the pre-anesthesia evaluation, pertinent labs, and test results. Significant changes in the patient's condition since the History and Physical, not otherwise documented in primary service progress notes: No This contains updated information obtained within 48 hours of Surgery/Procedure. SIGNATURE: Jean Rowan MD PATIENT NAME: Rudolph Carolina DATE: January 05, 2019 TIME: 1:18 PM CSN: [id number] [facility] NURSING PROGon 01-05-2019 Protein mass conc HNO ID: [id number] Author: Alva Hunt RN Service: ? Author Type: Registered Nurse Type: Nursing Progress Note Filed: 01/05/2019 1:28 PM Note Text: PRE OP LEARNING ASSESSMENT PROCEDURE/SURGERY:rig ht hand READINESS TO LEARN COGNITIVE ABILITY: Alert and oriented MOTIVATION TO LEARN: Eager FAMILY SUPPORT: High - Very involved in pt care PATIENT LEARNS BEST BY: Individual Instruction FACTORS AFFECTING LEARNING: None PHYSICAL LIMITATIONS AFFECTING LEARNING: None Electronically Signed By: Alva Hunt RN In Department: AMBULATORY SURGERY [facility] PT EDon 01-05-2019 PT ED HNO ID: [id number] Author: Emily Gilliland RN Service: ? Author Type: Registered Nurse Type: Patient Education Filed: 01/05/2019 5:10 PM Note Text: POST OP LEARNING RESPONSE INSTRUCTION PROVIDED TO: Patient and Significant Other METHOD OF INSTRUCTION: Individual instruction PATIENT / FAMILY RESPONSE: Verbalizes understanding of: EQUIPMENT USE-Correct use of Equipment INFECTION MANAGEMENT-Signs and symptoms of an infection and importance of contacting the physician FOLLOW-UP PLAN: Follow up phone call. Contact information given. SUPPLEMENTAL MATERIAL: None REFERRAL (RECOMMENDATION): None Electronically Signed By: Emily Gilliland RN In Department: AMBULATORY SURGERY Normal [facility] SURGICAL PATHOLOGYon 019 SURGICAL PATHOLOGY Specimen originated from [facility] Specimen #: [id number] Submitting Physician: MITA CALLEJAS FINAL DIAGNOSIS Soft tissue, right volar wrist, excision - Ganglion cyst. CAROLYNE/JACOB/kedar 01/09/19 Albert aJime M.D. (Electronic Signature) ____ SPECIMEN SUBMITTED A: RIGHT WRIST VOLAR MASS CLINICAL DATA GANGLION CYST OF VOLAR ASPECT OF RIGHT WRIST [M67.431], LMP: N/A GROSS DESCRIPTION A. Received in formalin labeled with patient name and right wrist volar mass are multiple, irregular, arguello-white, rubbery fibrous tissue fragments aggregating to 1.5 x 1 x 0.3 cm. Entirely submitted in cassette A1. ANUPAMA/sabina 01/06/2019 Gross examination performed at [facility], [address] [place] [address] Date of Report: 01/09/2019 Date of Procedure: 01/05/2019 Date of Receipt: 01/05/2019 Submitted by: MITA CALLEJAS Location: [facility] Diagnostic interpretation performed at [facility], [address] [place] [address]. CLIA Number: [id number] Normal [facility] NURSING PROGon 12-25-2018 Protein mass conc HNO ID: [id number] Author: Nirmala (Rn) Dennis, RN Service: General Surgery Author Type: Registered Nurse Type: Nursing Progress Note Filed: 12/25/2018 7:00 PM Note Text: PACC Nurse Progress Note History AND Physical: PACC Visit Date: 12-24-18 Original HANDP Date: N/A ED visit Date: N/A Outside HANDP Scanned Date: N/A Labs Within Last 6 Months: N/A Imaging Within Last 12 Months: N/A Cardiac Testing: N/A Last Menstrual Period: LMP Date: 12-13-18 Postmenopausal >1yr: No, S/P Hysterectomy: No BMI Percentile (PEDS): N/A Risk Assessment: N/A Anesthesia Review: N/A Narrative: N/A Pre-op Considerations: Per HANDP: Gastroesophageal reflux disease without esophagitis Assessment: on meds ? ? ? Ganglion cyst of volar aspect of right wrist Assessment: scheduled for surgery Chart Check: COMPLETED Nirmala Collins RN December 25, 2018 6:59 PM Normal [facility] HISTORY PHYSICALon HISTORY PHYSICAL HNO ID: [id number] Author: Ange Jha Service: ? Author Type: Nurse Practitioner Type: HANDP Filed: 12/24/2018 11:09 AM Note Text: HISTORY AND PHYSICAL EXAMINATION SERVICE DATE: 12/24/2018 SERVICE TIME: 10:51 AM PRIMARY CARE PHYSICIAN: Moon Swift MD REASON FOR VISIT: Rudolph Carolina is a 28 year old female who is scheduled for PAT at the request of Dr. Mita Callejas for consultation. My final recommendation will be communicated back to the requesting physician by way of shared medical record or letter. The patient has the following: ACTIVE PROBLEM LIST Ganglion Cyst of Volar Aspect of Right Wrist Right Carpal Tunnel Syndrome Gastroesophageal Reflux Disease Without Esophagitis Subjective CHIEF COMPLAINT: Ganglion cyst right wrist HPI: 28 yr old with ganglion cyst right wrist Volar/radial mass, tender to palpation, firm Hx of normal EMG test , does not affect movement Pain today 2/10 worse with activity hard to wash dishes ,has had the problem for one year No injections Hx of having one removed from the left in the past No fever chills or nausea PAST MEDICAL HISTORY Diagnosis Date - Anxiety - GERD (gastroesophageal reflux disease) PAST SURGICAL HISTORY Procedure Laterality Date - SECTION HX 2009,2011, 2012 - CHOLECYSTECTOMY 2010 - COSMETIC LABIAPLASTY 2019 - ELBOW SURGERY HX 2018 right ulnar nerve decompression - KNEE ARTHROSCOPY 2017 right - PAST SURGICAL HISTORY OF 2006 tumor removed from right finger - PAST SURGICAL HISTORY OF 2016 ganglion cyst left hand - PAST SURGICAL HISTORY OF 3 exploratory lap - PAST SURGICAL HISTORY OF 2013 tubaligation History reviewed. No pertinent family history. SOCIAL HISTORY: Social History Socioeconomic History Marital status: Single Spouse name: Not on file Number of children: Not on file Years of education: Not on file Highest education level: Not on file Social Needs Financial resource strain: Not on file Food insecurity - worry: Not on file Food insecurity - inability: Not on file Transportation needs - medical: Not on file Transportation needs - non-medical: Not on file Occupational History Not on file Tobacco Use Smoking status: Smoker, Current Status Unknown Packs/day: 0.50 Years: 15.00 Pack years: 7.5 Smokeless tobacco: Never Used Substance and Sexual Activity Alcohol use: Never Frequency: Never Drug use: Never Sexual activity: Not on file Other Topics Concerns: Not on file Social History Narrative Not on file Prior to Admission medications as of 12/24/18 1104 Medication Sig Last Dose Taking lansoprazole (PREVACID) 30 mg capsule Take 30 mg by mouth. Yes diazePAM (VALIUM) 5 mg tablet Take 5 mg by mouth every 6 hours as needed. Yes acetaminophen (TYLENOL) 325 mg cap Take by mouth. Yes melatonin 1 mg tablet Take by mouth. Yes No medication comments found. ALLERGIES Allergen Reactions - Tizanidine Unknown Muscle spasms REVIEW OF SYSTEMS: PAIN ASSESSMENT: General: No weight loss, malaise or fevers. Neuro: No history of TIA's, stroke, WEB PROGRAMMER tumor, impaired sensorium, hemiplegia, paraplegia or quadraplegia. No neurological symptoms or problems. Respiratory: No history of current cough or dyspnea, or pneumonia in the past 6 weeks. No history of respiratory/pulmonary symptoms or problems. Cardiovascular: No history of HTN requiring medication, no history of angina, CHF, MS, cardiac surgery or stents. Denies rest pain, gangrene or revascularization/amp utation for PVD. No history of cardiovascular symptoms or problems. GI: Positive for GERD : No history of dysuria, frequency or incontinence,, stones or chronic kidney disease DIRECTOR OF PROGRAMMING: Negative for abnormal vaginal bleeding, abnormal vaginal discharge. : Denies, Patient's last menstrual period was 12/13/2018. Endocrine: No history of diabetes. Has not taken steroids within the past 30 days. No history of endocrinological symptoms or problems. Hematology: No history of bleeding or clotting disorder. Pt is not taking anti-coagulation or platelet medications. No history of hematological symptoms or problems. Oncology: No history of CA metastasis, chemo within 30 days, or radiotherapy within 90 days. Has not lost 10% of body wt in 6 months. No history of oncological symptoms or problems. Psych: Anxiety, insomnia Musculoskeletal: See HPI Skin: Negative for lesions, rash and itching. Objective PHYSICAL EXAM: VITALS: BP 112/71 Pulse 90 Temp (Src) 98.6 (Temporal Artery) Resp 16 Ht 5' 3 (1.60m) Wt 165 lb (74.8kg) SpO2 99% LMP 12/13/2018 BMI 29.24 kg/(m2). General: Alert and oriented Skin: Normal color, no rash, no lesions. HEENT: EOM, pupils equal, round and reactive. Cardiovascular: Normal S1 AND S2, no rubs, murmurs or gallops. No JVD. Pulse regular. Lungs: Normal breath sounds, no wheezes or crackles. Abdomen: Soft, non-tender, no rigidity. Extremities: Joint tenderness Neurological: Normal cognition and motor skills. Pulses: Carotid and radial pulses normal +2. Diagnostic tests reviewed for today's visit: No results found for: HBA1C No new labs or tests Assessment/Plan Gastroesophageal reflux disease without esophagitis Assessment: on meds Ganglion cyst of volar aspect of right wrist Assessment: scheduled for surgery METS: Climb a flight of stairs or walk up a hill (5.50 METs) Patient denies any chest pain or undue shortness of breath with the above physical activity. ASA Class: 2 ANESTHESIA FINDINGS: Intubation History: No history of difficult intubation Significant Anesthesia Considerations: None Airway Exam: General: Normal appearance Mallampati Score is CLASS I ULBT: Class I - Lower incisors can bite the upper lip above the elie line Neck: Normal appearance and function, Distance from hyoid to mentum during neck extension is at least 3 finger breaths Mouth: Normal tongue size and Mouth opening greater than 2 finger breaths Dentition: Intact Airway History: No abnormal airway history STOP BANG Score: Criteria: None Score = 0 PLAN This patient is optimally prepared for surgery. CONSULTS: Patient does not require consults for optimization at this time. The Following Tests/Procedures Have Been Initiated: Labs not indicated per PACC protocol, EKG not indicated per PACC protocol Planned Anesthetic: Per anesthesia choice Instructions Given to Patient: Patient given verbal and written preop instructions and voices comprehension and compliance. SIGNATURE: Ange Jha APRN.CNP PATIENT NAME: Rudolph Carolina DATE: December 24, 2018 TIME: 10:51 AM PAGER/CONTACT #: Aditya [facility] 10-29-2018 HOSP Patient:Linda Carolina MRN: Height:5' 3 (1.6 m) Weight:165 lb (74.844 kg) Outpatient Medications as of 01/05/19: lansoprazole (PREVACID) 30 mg capsule diazePAM (VALIUM) 5 mg tablet acetaminophen (TYLENOL) 325 mg cap melatonin 1 mg tablet Admission/Clinic Administered Medications as of 01/05/19: lidocaine 10 mg/mL (1 %) 1-2 mg injection (XYLOCAINE) lactated ringers infusion ceFAZolin iv piggyback 2 g in D5W (iso-osmotic) 100 mL (ANCEF) Problem List: Ganglion cyst of volar aspect of right wrist [M67.431] Right carpal tunnel syndrome [G56.01] Gastroesophageal reflux disease without esophagitis [K21.9] Allergies: Tizanidine Date Verified: 01/05/19 Lab Values No results within the last 30 days for the following basenames: K,HCT No progress notes entered within the past 30 days Normal [facility] CNOVon 10-28-2018 CNOV Office Visit ([facility] ) RUDOLPH CAROLINA ([id number]) 1990 F Date Time Provider Department 10/28/18 11:45 AM MITA CALLEJAS During your visit today, we recorded the following information about you: Mita Callejas MD 10/28/2018 12:06 PM Signed Rudolph Carolina is a patient of Moon Swift MD. CHIEF COMPLAINT: Rudolph Carolina is a 28 year old female who presents today for follow up of right wrist mass. HISTORY OF PRESENT ILLNESS: PAIN EVALUATION 10/28/2018 Pain Score: 8 Pain Location: Hand-Right Description: Sharp;Numbness;Tingli ng Frequency: Continuous Intervention: Reposition;Relaxation ;Medication;Positioni ng Interval history: At this point she really wants her mass out. She follows up after her EMG to make sure there was not a concomitant carpal tunnel syndrome as well. REVIEW OF SYMPTOMS: Constitutional: Fever/chills: No Cardiovascular: Chest Pain: No Musculoskeletal: as noted in the HPI Neurologic: as noted in the HPI SOCIAL HISTORY: Tobacco user? Yes PHYSICAL EXAMINATION: Vitals: There were no vitals taken for this visit. Body Habitus:well nourished and no acute distress Orientation: Normal: Oriented to person, place and time Psych: normal Skin: Color, texture, turgor normal. No rashes or lesions Sensation: sensation to light touch is grossly normal bilaterally Specific MSK Exam The right wrist is examined. Volarly and radially over the wrist joint there is a 1 x 1 cm mass that is tender to palpation, it is firm. It positively transilluminates. Romeo's testing is symmetric. Sensation intact in the median, radial, ulnar nerve distribution. AIN, PIN, ulnar motor intact. Able make a full fist. Wrist motion is symmetric to the other side. IMAGING: No imaging was performed today. EMG from 10/15/2018 is reviewed. It shows a normal study. There is no electrodiagnostic evidence of neuropathy or radiculopathy in the right upper limb. CLINICAL IMPRESSION / ASSESSMENT: (M67.431) Ganglion cyst of volar aspect of right wrist (primary encounter diagnosis) PLAN: She has had a mass excision on the left wrist and once the same to be done on the right wrist. I have offered an ultrasound-guided aspiration but she declined this. It is very symptomatic and at this point she requests surgery. This is reasonable. Consent was obtained for right volar wrist mass excision. The patient has failed protracted conservative treatment. Treatment options were discussed in detail. After a discussion of risks, benefits, alternatives, post operative rehab, post operative expectations, the patient agreed to the procedure listed above. Mita Callejas MD This document has been created with the use of voice recognition technology. It may contain inaccuracies: misspellings, inaccurate syntax or word sense that escaped review. Teresa Laird 10/29/2018 10:09 AM Signed Addended by: TERESA BARNES on: 10/29/2018 10:09 AM Modules accepted: Orders Referring Provider: SELF [[id number]] Allergies As of Date: 10/28/2018 Noted Allergy Reaction TIZANIDINE 02/14/2017 16 - Unknown Comments: Muscle spasms Date Reviewed: 10/28/2018 Reviewed by: Mita Callejas - Fully Assessed Reason for Visit: emg results [Other] Primary Visit Diagnosis:Ganglion cyst of volar aspect of right wrist [M67.431] Order(s):SURGICAL REQUEST - ELECTIVE [[id number]] Order #: [id number]: 1 Prescriptions as of 10/28/2018 Sig: LANSOPRAZOLE 30 MG CAPSULE,DE* Take 30 mg by mouth. DIAZEPAM 5 MG TABLET Take 5 mg by mouth every 6 ho* ACETAMINOPHEN 325 MG CAPSULE Take by mouth. MELATONIN 1 MG TABLET Take by mouth. Problem List As Of Date 10/28/2018 Noted Resolved Ganglion cyst of volar aspect of right wrist [M*INVALID FOR* Right carpal tunnel syndrome [G56.01] INVALID FOR* Encounter Status:Closed by MITA CALLEJAS MD on 10/28/18 Normal [facility] PROGRESSon 10-28-2018 Protein mass conc HNO ID: [id number] Author: Mita Callejas Service: (none) Author Type: Physician Type: Progress Notes Filed: 10/28/2018 12:06 PM Note Text: Rudolph Carolina is a patient of Moon Swift MD. CHIEF COMPLAINT: Rudolph Carolina is a 28 year old female who presents today for follow up of right wrist mass. HISTORY OF PRESENT ILLNESS: PAIN EVALUATION 10/28/2018 Pain Score: 8 Pain Location: Hand-Right Description: Sharp;Numbness;Tingli ng Frequency: Continuous Intervention: Reposition;Relaxation ;Medication;Positioni ng Interval history: At this point she really wants her mass out. She follows up after her EMG to make sure there was not a concomitant carpal tunnel syndrome as well. REVIEW OF SYMPTOMS: Constitutional: Fever/chills: No Cardiovascular: Chest Pain: No Musculoskeletal: as noted in the HPI Neurologic: as noted in the HPI SOCIAL HISTORY: Tobacco user? Yes PHYSICAL EXAMINATION: Vitals: There were no vitals taken for this visit. Body Habitus:well nourished and no acute distress Orientation: Normal: Oriented to person, place and time Psych: normal Skin: Color, texture, turgor normal. No rashes or lesions Sensation: sensation to light touch is grossly normal bilaterally Specific MSK Exam The right wrist is examined. Volarly and radially over the wrist joint there is a 1 x 1 cm mass that is tender to palpation, it is firm. It positively transilluminates. Romeo's testing is symmetric. Sensation intact in the median, radial, ulnar nerve distribution. AIN, PIN, ulnar motor intact. Able make a full fist. Wrist motion is symmetric to the other side. IMAGING: No imaging was performed today. EMG from 10/15/2018 is reviewed. It shows a normal study. There is no electrodiagnostic evidence of neuropathy or radiculopathy in the right upper limb. CLINICAL IMPRESSION / ASSESSMENT: (M67.431) Ganglion cyst of volar aspect of right wrist (primary encounter diagnosis) PLAN: She has had a mass excision on the left wrist and once the same to be done on the right wrist. I have offered an ultrasound-guided aspiration but she declined this. It is very symptomatic and at this point she requests surgery. This is reasonable. Consent was obtained for right volar wrist mass excision. The patient has failed protracted conservative treatment. Treatment options were discussed in detail. After a discussion of risks, benefits, alternatives, post operative rehab, post operative expectations, the patient agreed to the procedure listed above. Mita Callejas MD This document has been created with the use of voice recognition technology. It may contain inaccuracies: misspellings, inaccurate syntax or word sense that escaped review. Normal [facility] CNOVon 10-15-2018 CNOV Office Visit ([facility] ) RUDOLPH CAROLINA ([id number]) 1990 F Date Time Provider Department 10/15/18 1:00 PM GRACE FOUNTAIN [facility] During your visit today, we recorded the following information about you: Grace Fountain DO 10/15/2018 1:25 PM Signed Normal study. There is no electrodiagnostic evidence of neuropathy or radiculopathy in the right upper limb. Referring Provider: CEE DAWSON) [[id number]] Allergies As of Date: 10/15/2018 Noted Allergy Reaction TIZANIDINE 02/14/2017 16 - Unknown Comments: Muscle spasms Date Reviewed: 10/07/2018 Reviewed by: Mita Callejas - Fully Assessed Reason for Visit: Musculoskeletal Problem [69] Cmt: intermittent right UE numbness, right wrist pain Primary Visit Diagnosis:Paresthesia [R20.2] Other Visit Diagnoses:Numbness and tingling of right upper extremity [R20.0, R20.2] Musculoskeletal pain of right upper extremity [M79.601] Order(s):EMG(NEURO/NI ) [[id number]] Order #: [id number]: 1 Prescriptions as of 10/15/2018 Sig: LANSOPRAZOLE 30 MG CAPSULE,DE* Take 30 mg by mouth. DIAZEPAM 5 MG TABLET Take 5 mg by mouth every 6 ho* ACETAMINOPHEN 325 MG CAPSULE Take by mouth. MELATONIN 1 MG TABLET Take by mouth. Problem List As Of Date 10/15/2018 Noted Resolved Ganglion cyst of volar aspect of right wrist [M*INVALID FOR* Right carpal tunnel syndrome [G56.01] INVALID FOR* Encounter Status:Closed by GRACE FOUNTAIN DO on 10/15/18 Normal [facility] PROCEDUREon 10-15-2018 Protein mass conc HNO ID: [id number] Author: Grace Fountain Service: (none) Author Type: Physician Type: Procedures Filed: 10/15/2018 1:25 PM Note Text: Normal study. There is no electrodiagnostic evidence of neuropathy or radiculopathy in the right upper limb. Normal [facility] CNOVon 10-07-2018 CNOV Office Visit ([facility] ) RUDOLPH CAROLINA ([id number]) 1990 F Date Time Provider Department 10/07/18 11:00 AM MITA CALLEJASORRGregorio During your visit today, we recorded the following information about you: Mita Callejas MD 10/07/2018 5:13 PM Signed The patient is sent for evaluation and an opinion regarding treatment by Mansoor Chaney, who will receive a copy of this report by mail or through the shared medical record. CHIEF COMPLAINT: Rudolph Carolina is a 27 year old female who presents today for new evaluation of right wrist mass. 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 She states that this is very painful, states that the pain is aggravated by touching it or motion of the wrist. She denies any prior injuries to this wrist. She has not had any treatments to this but has seen other providers with chief suggested her to see an orthopedic surgeon. She would like to get this mass removed since it's affecting her activities of daily living as well as her performance is a work. States she has had some tingling and numbness on the fingers with the median nerve distribution for about the same time as she has had the mass. She has a history of a mass excision from the left wrist which she states was very similar to this one. She had an aspiration guided by ultrasound in the past for the left mass and states it did not help, therefore she would not like one this time. Previous treatment or work-up includes: none. ROS: REVIEW OF SYSTEMS: Constitutional: Fever/chills: No Cardiovascular: Chest Pain: No Respiratory: SOB: No Musculoskeletal: as noted in the HPI Neurologic: as noted in the HPI Endocrine: Diabetes: No Tobacco user? No SOCIAL HISTORY: Tobacco Use: Not on file FAMILY HISTORY: No family history on file. No past medical history on file. No past surgical history on file. No family history on file. Social History Marital status: Single Spouse name: Years of education: Number of children: Social History Main Topics Drug use: Unknown ALLERGIES Allergen Reactions - Tizanidine Unknown Muscle spasms Current Outpatient Prescriptions: lansoprazole (PREVACID) 30 mg capsule Take 30 mg by mouth. Disp: Rfl: diazePAM (VALIUM) 5 mg tablet Take 5 mg by mouth every 6 hours as needed. Disp: Rfl: acetaminophen (TYLENOL) 325 mg cap Take by mouth. Disp: Rfl: melatonin 1 mg tablet Take by mouth. Disp: Rfl: No current facility-administered medications for this visit. Physical Exam: Vitals: There were no vitals taken for this visit. Body Habitus:well nourished and no acute distress Orientation: Normal: Oriented to person, place and time Psych: normal and appropriate Skin: Color, texture, turgor normal. No rashes or lesions Sensation: sensation to light touch is grossly normal bilaterally right hand: On examination of the right wrist skin is intact with no erythema. There is a 1.3 x 1.3cm mass, tender to touch, positive tinel's, positive transillumination, compressible. Even Romeo's test. Sensation on the median nerve distribution is decreased when compared to the left. Sensation on the ulnar nerve distribution is decreased, but this is her normal. Sensation on the radial nerve distributions is intact. Positive Tinel's, Positive Kiarra's, positive Phalen's. Radial pulse 2+. IMAGING: Final results and radiologist's interpretation, available in the [facility] health record. Images were reviewed with the patient/family members in the office today. My personal interpretation of the performed imaging is no acute fractures or osseous abnormalities noted Assessment: (M67.431) Ganglion cyst of volar aspect of right wrist (primary encounter diagnosis) (G56.01) Right carpal tunnel syndrome Plan: I explained to the patient that an excision of the cyst is reasonable due to the fact that it is symptomatic and it is affecting her daily activities. I first offered her a cyst aspiration guided by ultrasound procedure but she declined this. She has also been experiencing numbness and tingling of the fingers so I would also like to order an EMG prior to the ganglion cyst excision, if she is positive for carpal tunnel, we may also perform a carpal tunnel release surgery. Patient agreed with the plan. Follow up after the EMG. Cee Dawson PA-C Attending Note I have personally performed a face to face assessment of the patient and have reviewed the PA/BARREL BURNER note. My valladares findings include: History is right volar radial mass that bothers her along with median nerve distribution numbness and tingling Exam is positive transillumination, has a Tinel, Kiarra, Phalen at the carpal tunnel on the right wrist Assessment/Plan are Ganglion cyst of volar aspect of right wrist (primary encounter diagnosis) Right carpal tunnel syndrome Signature: Mita Callejas MD Date: 10/07/18 Time: 12:47 PM Mita Callejas MD This document has been created with the use of voice recognition technology. It may contain inaccuracies: misspellings, inaccurate syntax or word sense that escaped review. Referring Provider: MANSOOR CHANEY) [[id number]] Allergies As of Date: 10/07/2018 Noted Allergy Reaction TIZANIDINE 02/14/2017 16 - Unknown Comments: Muscle spasms Date Reviewed: 10/07/2018 Reviewed by: Mita Callejas - Fully Assessed Reason for Visit: Cyst [260] Primary Visit Diagnosis:Ganglion cyst of volar aspect of right wrist [M67.431] Other Visit Diagnosis:Right carpal tunnel syndrome [G56.01] Order(s):EMG(NEURO/NI ) [[id number]] Order #: [id number]: 1 FUTURE Prescriptions as of 10/07/2018 Sig: LANSOPRAZOLE 30 MG CAPSULE,DE* Take 30 mg by mouth. DIAZEPAM 5 MG TABLET Take 5 mg by mouth every 6 ho* ACETAMINOPHEN 325 MG CAPSULE Take by mouth. MELATONIN 1 MG TABLET Take by mouth. Problem List As Of Date 10/07/2018 Noted Resolved Ganglion cyst of volar aspect of right wrist [M*INVALID FOR* Right carpal tunnel syndrome [G56.01] INVALID FOR* Encounter Status:Closed by MITA CALLEJAS MD on 10/07/18 Normal [facility] PROGRESSon 10-07-2018 Protein mass conc HNO ID: [id number] Author: Mita Callejas Service: (none) Author Type: Physician Type: Progress Notes Filed: 10/07/2018 5:13 PM Note Text: The patient is sent for evaluation and an opinion regarding treatment by Mansoor Chaney, who will receive a copy of this report by mail or through the shared medical record. CHIEF COMPLAINT: Rudolph Carolina is a 27 year old female who presents today for new evaluation of right wrist mass. 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 She states that this is very painful, states that the pain is aggravated by touching it or motion of the wrist. She denies any prior injuries to this wrist. She has not had any treatments to this but has seen other providers with chief suggested her to see an orthopedic surgeon. She would like to get this mass removed since it's affecting her activities of daily living as well as her performance is a work. States she has had some tingling and numbness on the fingers with the median nerve distribution for about the same time as she has had the mass. She has a history of a mass excision from the left wrist which she states was very similar to this one. She had an aspiration guided by ultrasound in the past for the left mass and states it did not help, therefore she would not like one this time. Previous treatment or work-up includes: none. ROS: REVIEW OF SYSTEMS: Constitutional: Fever/chills: No Cardiovascular: Chest Pain: No Respiratory: SOB: No Musculoskeletal: as noted in the HPI Neurologic: as noted in the HPI Endocrine: Diabetes: No Tobacco user? No SOCIAL HISTORY: Tobacco Use: Not on file FAMILY HISTORY: No family history on file. No past medical history on file. No past surgical history on file. No family history on file. Social History Marital status: Single Spouse name: Years of education: Number of children: Social History Main Topics Drug use: Unknown ALLERGIES Allergen Reactions - Tizanidine Unknown Muscle spasms Current Outpatient Prescriptions: lansoprazole (PREVACID) 30 mg capsule Take 30 mg by mouth. Disp: Rfl: diazePAM (VALIUM) 5 mg tablet Take 5 mg by mouth every 6 hours as needed. Disp: Rfl: acetaminophen (TYLENOL) 325 mg cap Take by mouth. Disp: Rfl: melatonin 1 mg tablet Take by mouth. Disp: Rfl: No current facility-administered medications for this visit. Physical Exam: Vitals: There were no vitals taken for this visit. Body Habitus:well nourished and no acute distress Orientation: Normal: Oriented to person, place and time Psych: normal and appropriate Skin: Color, texture, turgor normal. No rashes or lesions Sensation: sensation to light touch is grossly normal bilaterally right hand: On examination of the right wrist skin is intact with no erythema. There is a 1.3 x 1.3cm mass, tender to touch, positive tinel's, positive transillumination, compressible. Even Romeo's test. Sensation on the median nerve distribution is decreased when compared to the left. Sensation on the ulnar nerve distribution is decreased, but this is her normal. Sensation on the radial nerve distributions is intact. Positive Tinel's, Positive Kiarra's, positive Phalen's. Radial pulse 2+. IMAGING: Final results and radiologist's interpretation, available in the [facility] health record. Images were reviewed with the patient/family members in the office today. My personal interpretation of the performed imaging is no acute fractures or osseous abnormalities noted Assessment: (M67.431) Ganglion cyst of volar aspect of right wrist (primary encounter diagnosis) (G56.01) Right carpal tunnel syndrome Plan: I explained to the patient that an excision of the cyst is reasonable due to the fact that it is symptomatic and it is affecting her daily activities. I first offered her a cyst aspiration guided by ultrasound procedure but she declined this. She has also been experiencing numbness and tingling of the fingers so I would also like to order an EMG prior to the ganglion cyst excision, if she is positive for carpal tunnel, we may also perform a carpal tunnel release surgery. Patient agreed with the plan. Follow up after the EMG. Cee Dawson PA-C Attending Note I have personally performed a face to face assessment of the patient and have reviewed the PA/BARREL BURNER note. My valladares findings include: History is right volar radial mass that bothers her along with median nerve distribution numbness and tingling Exam is positive transillumination, has a Tinel, Kiarra, Phalen at the carpal tunnel on the right wrist Assessment/Plan are Ganglion cyst of volar aspect of right wrist (primary encounter diagnosis) Right carpal tunnel syndrome Signature: Mita Callejas MD Date: 10/07/18 Time: 12:47 PM Mita Callejas MD This document has been created with the use of voice recognition technology. It may contain inaccuracies: misspellings, inaccurate syntax or word sense that escaped review. Normal [facility] Protein mass conc HNO ID: [id number] Author: Leonidas (Rt) Tanya Stubbs Service: (none) Author Type: Clinical Data Management Manager Type: Progress Notes Filed: 10/07/2018 11:04 AM Note Text: Radiology Service Progress Note PATIENT NAME: Rudolph Carolina DATE OF SERVICE: October 07, 2018 TIME: 11:04 AM PATIENT IDENTITY VERIFICATION COMPLETED USING TWO (2) METHODS: Patient confirmed name verbally and Date of . PATIENT GENDER DATA: Female. status: : No status: NO. PATIENT RELEVANT IMPLANT DATA REVIEWED: Not Applicable RADIOLOGY DEPARTMENT: General X-ray: Exam(s) Completed: Upper Extremity X-Ray(s): Wrist, right : PERIPHERAL IV DATA: Not applicable SIGNED BY: RT Isidro October 07, 2018 11:04 AM Normal [facility] XR WRIST 3V PA/LAT/OBL RTon 10-07-2018 XR WRIST 3V PA/LAT/OBL RT * * *Final Report* * * DATE OF EXAM: Oct 07 2018 11:06AM [id number] [id number] - XR WRIST 3V PA/LAT/OBL RT / PROCEDURE REASON: Pain in right wrist * * * * Physician Interpretation * * * * EXAMINATION: XR WRIST 3V PA/LAT/OBL RT HISTORY: painful mass/cyst anterior right wrist Pain in right wrist . TECHNIQUE: XR WRIST 3V PA/LAT/OBL RT Laterality: RIGHT Number of different views (projections): 3 M: XB_1 COMPARISON: None RESULT: Normal carpal arcs, carpal articular surfaces and intercarpal joint spaces. A mineralized mass is not identified. Ultrasound may be used to determine extent and characteristics of the mass. No other significant abnormality. IMPRESSION: No bone or articular abnormality. Customer Support Advisor: PSCB Transcribe Date/Time: Oct 07 2018 11:27A Dictated by : JOHN LARA MD This examination was interpreted and the report reviewed and electronically signed by: JOHN LARA MD on Oct 07 2018 11:28AM EST [id number] Normal [facility] CNOVon 09-17-2018 CNOV Office Visit (ORTHAL ) RUDOLPH CAROLINA ([id number]) 1990 F Date Time Provider Department 09/17/18 10:15 AM MANSOOR CHANEY)LEEANN During your visit today, we recorded the following information about you: Mansoor Chaney PA-C 09/17/2018 10:31 AM Signed SUBJECTIVE Rudolph Carolina is a 27 year old female. [id number]. Worker's Compensation and legal considerations: none Ms. Carolina presents for initial evaluation of right wrist cyst Patient reports: Patient presents the office today for evaluation of right wrist ganglion cyst. Patient states she has noticed a ganglion cyst on the distal radial, volar aspect of her right wrist over the past 7 months. States this is slowly growing in size and causing increased pain and difficulty with mobility. She has had previous excision of wrist cyst on the left side in the past. She denies numbness or tingling. Denies any alleviating factors but is trialed bracing, compression, ice, rest. Review of Systems: All were reviewed and found to be negative except those present in HPI. Past medical history: There is no problem list on file for this patient. Past surgical history: No past surgical history on file. Family history:No family history on file. Social history: Social History Marital status: Single Spouse name: Years of education: Number of children: Social History Main Topics Drug use: Unknown Medications: No current outpatient prescriptions on file prior to visit. No current facility-administered medications on file prior to visit. Allergies: ALLERGIES Allergies not on file OBJECTIVE GENERAL: no acute distress, alert, oriented x 3, appropriate mood and affect Right Wrist Hand(s): SKIN: intact SWELLING: there is 2 cm x 1 cm lobulated, soft, fluctuant, mildly tender, cyst which transilluminates on examination today. This is over the distal radial, volar surface of the right wrist. EFFUSION: negative WARMTH: negative TENDERNESS:over cyst ROM: full ROM OLIVIER TEST: negative STRENGTH: 5/5 biceps, triceps, risk consulting treasury director, finger abduction, WE, WF, AND EPL STABILITY: all joints stable CREPITUS: negative NEUROLOGICAL EXAM: Sensory: sensation intact to light touch axillary, radial, median, AND ulnar distributions 2-point discrimination intact throughout all digits. Motor strength: equal bilaterally with 5/5 biceps, triceps, risk consulting treasury director, finger abduction, WE, WF, thumb opposition, AND EPL Atrophy: none seen in thenar, hypothenar, or first dorsal interosseous. Tinel sign: at carpal tunnel negative and at ulnar nerve negative Phalen's test: negative Flexed elbow test: negative NECK: supple, non tender, full ROM, AND negative Spurling's VASCULAR EXAM: good capillary refill, warm with good color, and radial AND brachial pulses present LYMPH NODES: no epitrochlear adenopathy palpable ASSESSMENT Ganglion cyst (primary encounter diagnosis) PLAN The following plan was agreed upon: Discussed both conservative (aspiration/injection ), and surgical intervention (excision). Discussed risks for arterial puncture with aspiration as radial artery is palpable in proximity of cyst. Patient wishes to consider surgical intervention at this time as she required surgical excision of left ganglion cyst previously. We will schedule consultation with Dr. Callejas for this consideration Mansoor Chaney PA-C This note is created with the assistance of a speech-recognition program. It may contain inaccuracies such as misspellings,inaccuar ate syntax or word sense that escaped review. While intending to generate a document that accurately reflects the content of the visit, no guarantee can be provided that every mistake has been identified and corrected by editing. Referring Provider: MOON SWIFT [[id number]] Allergies As of Date: 09/17/2018 Noted Allergy Reaction TIZANIDINE 02/14/2017 16 - Unknown Comments: Muscle spasms Date Reviewed: 09/17/2018 Reviewed by: Mansoor Mckinnon) Nigel - Fully Assessed Reason for Visit: Cyst [260] Cmt: R wrist Primary Visit Diagnosis:Ganglion cyst [M67.40] Prescriptions as of 09/17/2018 Sig: LANSOPRAZOLE 30 MG CAPSULE,DE* Take 30 mg by mouth. DIAZEPAM 5 MG TABLET Take 5 mg by mouth every 6 ho* ACETAMINOPHEN 325 MG CAPSULE Take by mouth. MELATONIN 1 MG TABLET Take by mouth. Problem List As Of Date: 09/17/2018 (None) Disposition: Return for follow up with Dr Callejas, surgical consultation for exicsion of volar ganglion cyst right wrist. Follow-up and Disposition History Recorded Encounter Status:Closed by MANSOOR CHANEY PA-C on 09/17/18 [facility] PROGRESSon 09-17-2018 Protein mass conc HNO ID: [id number] Author: Mansoor Mckinnon) Nigel Service: (none) Author Type: Physician Pipe Liner Type: Progress Notes Filed: 09/17/2018 10:31 AM Note Text: SUBJECTIVE Rudolph Carolina is a 27 year old female. [id number]. Worker's Compensation and legal considerations: none Ms. Carolina presents for initial evaluation of right wrist cyst Patient reports: Patient presents the office today for evaluation of right wrist ganglion cyst. Patient states she has noticed a ganglion cyst on the distal radial, volar aspect of her right wrist over the past 7 months. States this is slowly growing in size and causing increased pain and difficulty with mobility. She has had previous excision of wrist cyst on the left side in the past. She denies numbness or tingling. Denies any alleviating factors but is trialed bracing, compression, ice, rest. Review of Systems: All were reviewed and found to be negative except those present in HPI. Past medical history: There is no problem list on file for this patient. Past surgical history: No past surgical history on file. Family history:No family history on file. Social history: Social History Marital status: Single Spouse name: Years of education: Number of children: Social History Main Topics Drug use: Unknown Medications: No current outpatient prescriptions on file prior to visit. No current facility-administered medications on file prior to visit. Allergies: ALLERGIES Allergies not on file OBJECTIVE GENERAL: no acute distress, alert, oriented x 3, appropriate mood and affect Right Wrist Hand(s): SKIN: intact SWELLING: there is 2 cm x 1 cm lobulated, soft, fluctuant, mildly tender, cyst which transilluminates on examination today. This is over the distal radial, volar surface of the right wrist. EFFUSION: negative WARMTH: negative TENDERNESS:over cyst ROM: full ROM OLIVIER TEST: negative STRENGTH: 5/5 biceps, triceps, risk consulting treasury director, finger abduction, WE, WF, AND EPL STABILITY: all joints stable CREPITUS: negative NEUROLOGICAL EXAM: Sensory: sensation intact to light touch axillary, radial, median, AND ulnar distributions 2-point discrimination intact throughout all digits. Motor strength: equal bilaterally with 5/5 biceps, triceps, risk consulting treasury director, finger abduction, WE, WF, thumb opposition, AND EPL Atrophy: none seen in thenar, hypothenar, or first dorsal interosseous. Tinel sign: at carpal tunnel negative and at ulnar nerve negative Phalen's test: negative Flexed elbow test: negative NECK: supple, non tender, full ROM, AND negative Spurling's VASCULAR EXAM: good capillary refill, warm with good color, and radial AND brachial pulses present LYMPH NODES: no epitrochlear adenopathy palpable ASSESSMENT Ganglion cyst (primary encounter diagnosis) PLAN The following plan was agreed upon: Discussed both conservative (aspiration/injection ), and surgical intervention (excision). Discussed risks for arterial puncture with aspiration as radial artery is palpable in proximity of cyst. Patient wishes to consider surgical intervention at this time as she required surgical excision of left ganglion cyst previously. We will schedule consultation with Dr. Callejas for this consideration Mansoor Chaney PA-C This note is created with the assistance of a speech-recognition program. It may contain inaccuracies such as misspellings,inaccuar ate syntax or word sense that escaped review. While intending to generate a document that accurately reflects the content of the visit, no guarantee can be provided that every mistake has been identified and corrected by editing. Normal [facility] PTOT Dischargeon 03-07-2018 PTOT Discharge Discharge SummaryPHYSICAL THERAPY Referral/Discharge Information:Date of Discharge: 03-06-18 Date of Last Visit: 09-26-17 Date of Evaluation: 08-14-17 Number of Attended Visits: 2 Referred by: Dr. Peña Referred for: pelvic pain Reason for Discharge:Attendance inconsistent. Multiple cancels and no-shows. Patient was going to call when her life settled and has not called. Signatures Electronically signed by : Lilibeth Garcia PT; Mar 07 2018 9:57AM EST (Author) Normal [facility] URINE CULTURE,BACTERIALon URINE CULTURE,BACTERIAL PATIENT: RUDOLPH CAROLINA LOCATION: [facility] BILL#: [id number] : [birth year] AGE: SEX: F ORDERED BY: MALCOM PEÑA: URINE COLLECTED: 07/01/17 16:51ANTIBIOTICS AT KIM.: RECEIVED : 07/01/17 18:48SITE: Clean Catch/Voided R E S U L T S URINE CULTURE,BACTERIAL FINAL 07/02/17 12:06 NO GROWTH Normal [facility] Comment on above: Performed By: #### [facility] ####[facility] [place] [address] Vital Signs Date Time Vital Sign Value Performing Clinician Facility 01-10-2022 15:37-0400 Blood Pressure Location [facility] [place] 01-10-2022 15:37-0400 Diastolic blood pressure 76 mm[Hg] [facility] [place] 01-10-2022 15:37-0400 Heart rate 80 /min [facility] [place] 01-10-2022 15:37-0400 Respiratory rate 16 /min Leonidas NILL [facility] [place] 01-10-2022 15:37-0400 Systolic blood pressure 112 mm[Hg] [facility] [place] 09-14-2021 11:15-0500 Body height 160.02 cm Hilton Joshi Other [facility] Other 09-14-2021 11:15-0500 Body mass index (BMI) [Ratio] 34.72 kg/m2 Hilton Joshi Other [facility] Other 09-14-2021 11:15-0500 Body weight 88.91 kg Hilton Olexa Other [facility] Other 08-15-2021 14:30-0500 Body height 160.02 cm Hilton Olexa Other [facility] Other 08-15-2021 14:30-0500 Body mass index (BMI) [Ratio] 34.86 kg/m2 Hilton Olexa Other [facility] Other 08-15-2021 14:30-0500 Body weight 89.27 kg Hilton Olexa Other [facility] Other Encounters Encounter Date Encounter Type Care Provider Facility Start: 12-18-2022 End: 12-18-2022 ambulatory KIA Li Facility:[facility] Start: 03-06-2022 End: 03-06-[address] MOON SWIFT . Facility:[facility] Start: 02-27-2022 End: 02-27-2022 Patient encounter procedure Leonidas MASON [facility] [place] Start: 02-12-2022 Encounter for preprocedural laboratory examination DR LEONIDAS MASON . [facility] Start: 02-07-2022 End: 02-07-[address] LEONIDAS MASON . Facility:[facility] Start: 02-03-2022 End: 02-04-[address] LEONIDAS MASON . Facility:[facility] Start: 02-03-2022 End: 02-04-2022 Encounter for preprocedural laboratory examination DR LEONIDAS MASON . Facility:[facility] Start: 01-22-2022 End: 01-22-2022 ambulatory PAVEL BURNETTE Facility:[facility] Start: 01-10-2022 End: 01-10-2022 Patient encounter procedure Leonidas MASON [facility] [place] [place] Start: 12-22-2021 ambulatory PAVEL BURNETTE Facility: [facility] Start: 11-07-2021 End: 11-07-2021 ambulatory Hilton Olexa Other [facility] Other Start: 11-07-2021 Telephone encounter Hilton Olexa [facility] Start: 09-14-2021 End: 09-14-2021 ambulatory Hilton Olexa Other [facility] Other Start: 09-14-2021 Postop follow up vis it related to original px Hilton Olexa [facility] Start: 09-04-2021 End: 09-04-2021 ambulatory Hilton Olexa Other [facility] Other Start: 09-04-2021 Telephone encounter Hilton Olexa [facility] Start: 08-29-2021 End: 08-29-2021 ambulatory Hilton Olexa Other [facility] Other Start: 08-29-2021 Telephone encounter Hilton Olexa [facility] Start: 08-15-2021 End: 08-15-2021 ambulatory Hilton Olexa Other [facility] Other Start: 08-15-2021 Office outpatient ne w 45 minutes Hilton Olexa [facility] [place] Start: 09-15-2018 End: 09-16-2018 Patient encounter procedure DEFAULT PHYSICIAN Facility:[facility] Start: 09-26-2017 Ambulatory Beulah Breana Mariana Facility:[facility] Start: 08-22-2017 Ambulatory Beulah Breana Mariana Facility:[facility] Start: 08-14-2017 Ambulatory Beulah Breana Mariana Facility:[facility] Start: 07-01-2017 Ambulatory Beulah Breana Mariana [facility] Procedures Date Procedure Procedure Detail Performing Clinician Start: 02-07-2022 Colonoscopy Leonidas Buck Start: 02-12-2020 Abdominal hysterectomy Leonidas MASON Start: 10-02-2019 Laparoscopic salpingectomy Leonidas MASON Start: 05-03-2017 Dilation and curettage of uterus Leonidas MASON Start: 07-14-2014 Cholecystectomy Leonidas MASON Start: 09-09-2012 section Leonidas MASON Start: 09-09-2012 Ligation of fallopian tube Leonidas MASON Start: 09-09-2010 section Leonidas MASON Start: 09-09-2009 section Leonidas MASON Arthroscopy of knee Leonidas MASON Bilateral complete salpingectomy Leonidas MASON Excision of ganglion cyst Zara MASON Exploratory laparotomy Jian gayatri MASON H/O: surgery Status post bila teral salpingectomy( Confirmed ) Leonidas MASON History of total hysterectomy H/O total hysterectomy( Confirmed ) Leonidas MASON Labial frenoplasty Leonidas N RENEA Repair of meniscus Leonidas MEIER Payers Date Payer Category Payer Unknown [id number] 2.16.8 [id number] 1990 Unknown [id number] 2.16.84 [id number] 1990 Unknown [id number] 2.16.84 [id number] 1990 Unknown [id number] 2.16.84 [id number] 1990 Unknown [id number] 2.16.84 [id number] 1990 Unknown [id number] 2.16.84 [id number] 1990 Unknown [id number] 2.16.84 [id number] 1961 Self-pay 1961 Unknown [id number] 1961 Unknown [id number] Private Health Insurance [id number] Unknown Social History Date Type Detail Facility Start: 01-10-2022 Tobacco smoking status Ex-smoker (finding) [facility] Other Tobacco smoking status Smokeless tobacco user within last 30 days [facility] [place] Sex Assigned At Female [facility] Other Clinical Notes 08-15-2021 to 02-07-2022 Note Date & Type Note Facility 02-07-2022 Note OPERATIVE NOTE OPERATION DATE: 02/07/2022 PREOPERATIVE DIAGNOSIS: Intermittent rectal bleeding. POSTOPERATIVE DIAGNOSIS: Mild sigmoid inflammation as well as prominent rectal veins. PROCEDURE: Colonoscopy to cecum. SURGEON: Leonidas Mason M.D. ANESTHESIA: Monitored anesthesia care. ESTIMATED BLOOD LOSS: Zero. INDICATIONS AND CONSENT: Patient is a 31-year-old female with history of intermittent rectal bleeding. Indications, risks, benefits, alternatives of proceeding with colonoscopy were explained extensively to the patient, including the risks of bleeding, colon perforation or anesthetic complications. All of her questions were answered. Informed consent was obtained. PROCEDURE: Patient brought to the operating room, placed in the left lateral decubitus position. Monitored anesthesia care was provided. Rectal exam was performed which revealed no masses or blood. The scope was inserted into the anal canal. Under direct visualization was advanced. It was advanced to the cecum where cecal markings were clearly identified. There was noted to be a good prep. Upon withdrawal of the scope, mucosal surfaces were carefully examined. There were no mass lesions or polyps. There were some mild sigmoid inflammatory changes without diverticular disease. Biopsy was obtained with cold biopsy forceps with good hemostasis. The scope was retroflexed in the anal canal. There was noted to be some prominent rectal veins; no significant hemorrhoidal disease. Scope was then withdrawn. Patient tolerated procedure well, was sent to recovery room in good condition. Screening colonoscopy should start at age 45. CC: Meme Burnette CNP [facility] Signed and Approved by: DR LEONIDAS MASON . 02/08/2022 08:41:00 [facility] 01-10-2022 Note Chief Complaint consultation for painful, bleeding hemorrhoid HPI Staff 31 year old female presents on consultation from Meme Burnette [employer]FF for painful, bleeding hemorrhoid x 6 months. OTC witch ran wipes and Prep H are helpful. Never had treatment for this in the past. In addition, complains of severe gas pain and intermittent diarrhea since cholecystectomy completed greater than 10 years ago. Reports frequent nausea, denies vomiting. 12# pound weight loss over several months. Maternal grandfather with colon cancer, late 60's at time of diagnoses. Grandmother with ulcerative colitis. Never had colonoscopy in the past. History of Present Illness 31 yo female with h/o GERD, chronic neck/back pain, depression, referred for change in bms and intermittent rectal bleeding; intermittent loose stools, bloating, nausea, 12 lb wt loss; frequent episodes of nausea, no food triggers; no emesis; external hemorrhoid for past 6 months, had intermittent pain and bleeding, currently not bothersome; improved with steroid cream; some blood in stools at times, no melena; no previous endoscopy; multiple abdominal operations; LS cholecystectomy, x 3, multiple gynecological procedures, including AUDREY; on Daypro, no asa, no SBE prophylaxis; fmhx of colon cancer in 2 grandparents dx over the age of 60; grandmother with ulcerative colitis. vapes nicotine products. Review of Systems PHQ Score Initial Depression Screen Score: 0 ROS - Provider Constitutional: no fever, no sweats, no weight loss. Eyes: no glasses, no blurred vision, no visual loss. ENMT: no dentures, no hoarseness, no swallowing difficulties, no hearing loss, no ear infection(s), no nose bleeds. Cardiovascular: normal blood pressure, no chest pain, regular heartbeat, no heart murmur. Respiratory: no shortness of breath, no cough, no asthma, no wheezing. Gastrointestinal: no nausea, no vomiting, no diarrhea, no constipation, no blood in stool, no change in bowel habits, no abdominal pain, no hepatitis. Genitourinary: no kidney stones, no urine infection, no dysuria. Musculoskeletal: no pain, no weakness. Skin: no changing moles, no rash, no skin lumps. Neurologic: no seizures, no epilepsy, no headache. Psychiatric: no emotional or psychiatric problem. Heme/Lymph: no bleeding problems, no anemia, no blood clots, no transfusions. Allergy/Immunologic: no swollen lymph nodes/glands, no IV drug abuse. Other: Additional ROS info: Except as noted in the above Review of Systems and in the History of Present Illness, all other systems have been reviewed and are negative or noncontributory. Physical Exam Vitals & Measurements HR: 80(Peripheral) RR: 16 BP: 112/76 HT: 160 cm HT: 160.0 cm WT: 84.7 kg WT: 84.7 kg BMI: 33.09 HEENT: normal conjunctiva, sclera clear, no scleral icterus, EOM intact, PERRLA, oral mucosa moist without lesions. Neck: trachea midline, no mass, symmetric, no thyromegaly or nodules, no adenopathy Respiratory: lungs CTA, respirations non labored. Cardiovascular: regular rate and rhythm, no murmur, no pedal edema or varicosities. Gastrointestinal: soft, non distended, mild tenderness, mid abdomen; no peritoneal signs; no masses, no palpable hernias, diastasis recti no, no hepatosplenomegaly; normal bs Lymphatic: no cervical adenopathy, no axillary adenopathy, no inguinal adenopathy. Musculoskeletal: normal gait, digits and nails without infection, nodes, cyanosis, clubbing. Skin: no rashes, no lesions, no ulcers, no subcutaneous nodules, induration. Psychiatric/Neuro: oriented to time, place, person, judgement normal, affect appropriate for age, insight intact, no focal deficits. Tests: review of old records completed, Discussed surgical options, risks, and possible complications with patient. Assessment/Plan 1. Change in bowel habits (R19.4: Change in bowel habit) plan colonoscopy under anesthesia for further evaluation, informed consent obtained. 2. Rectal bleeding (K62.5: Hemorrhage of anus and rectum) see # 1 3. BMI 33.0-33.9,adult (Z68.33: Body mass index [BMI] 33.0-33.9, adult) recommend diet and exercise 4. Vapes nicotine containing substance (Z72.0: Tobacco use) We strongly recommend to quit tobacco use. Cigarette smoking harms nearly every organ of the body, causes many diseases, and reduces the health of smokers in general. Quitting smoking lowers your risk for smoking-related diseases and can add years to your life. We encourage you to visit www.smokefree.gov access to helpful resources including free telephone support. If you decide on prescription treatment to help you quit, your family doctor would be happy to provide these. 5. Hemorrhoids (K64.9: Unspecified hemorrhoids) asymptomatic currently; will evaluate at time of colonoscopy Follow-up No qualifying data available Problem List/Past Medical History Ongoing Anxiety BMI 33.0-33.9,adult BRBPR (bright red blood per rectum) Carpal tunnel syndrome on both sides Change in inez (more content not included)... [facility] Comment on above: Result Comment: Elec tronically Signed By: NAHOMY HODGE, Leonidas Garciabr\Date and Time Signed: 01/10/22 17:31 EDT 09-14-2021 Evaluation note Encounter Date Diagnosis Assessment Notes Sep, Acute lateral meniscus tear of left knee, initial encounter (ICD-10 - S83.282A) Sep, Primary osteoarthritis of left knee (ICD-10 - M17.12) Patient instructed on gentle motion exercise as well as quadriceps and hamstring strengthening exericse. Discussed use of ice and heat for pain relief as well as elevation of the leg to prevent swelling. 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 Discussed treatment as living with condition with conservative treatment such as cortisone injection, versus arthroscopy. We will plan on arthroscopy and menisectemy, with possible lateral release. Patient is understanding that the knee will be evaluated at the time of surgery to determine the need for lateral release. We have discussed continued non-operative treatments including gentle exercise, use of medications and activity modification. Patient states that they would like to proceed with surgery at this time. We discussed the surgery process in detail including nothing by mouth 8 hrs prior to sugery, thorough washing of leg pior to coming to surgery. We discussed the multiple potential risks of anesthesia including respiratory, cardiac and patient positioning issues. We discussed the multiple risks of surgery particularly wound infection, deep venous thrombosis(DVT), persistent swelling, pain and stiffness after surgery, as well as worsening of pre-existing arthritic symptoms. 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 We discussed the conservative treatment options which can be beneficial in relieving pain including gentle non-impact motion and quadriceps strengthening exercise as well as occasional use of non-steroidal anti-inflammatory medication. 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 Discussed potential for surgical lateral release if needed in the future. Aug, Acute pain of left knee (ICD-10 - M25.562) Aug, Acute pain of right knee (ICD-10 - M25.561) [facility] [employer] Other Evaluation + Plan note No data available for this section General Surgery [facility] Evaluation noteNo InformationNort [employer] Other History general Narrative - Reported* Type Description Date Medical History anxiety Medical History chronic depression Medical History acid reflux Medical History Esophageal reflux Medical History IBS Medical History chronic back pain Surgical History C section x3 Surgical History right knee meniscus tear 2016 Surgical History scar tissue in stomach Surgical History gallbladder Surgical History partial hysterectomy Surgical History nerve decompression right elbow Surgical History cyst removal right wrist Hospitalization History see above [employer] Other History general Narrative - Reported* Type Description Date Medical History anxiety Medical History chronic depression Medical History acid reflux Medical History Esophageal reflux Medical History IBS Medical History chronic back pain Surgical History C section x3 Surgical History right knee meniscus tear 2016 Surgical History scar tissue in stomach Surgical History gallbladder Surgical History partial hysterectomy Surgical History nerve decompression right elbow Surgical History cyst removal right wrist Surgical History Left knee arthroscop y with chondral lateral patellar facet and medial femoral condyle Hospitalization History see above [facility] Other Hospital Discharge instructions No data available for this section General Surgery [place] Progress note No data available for this section General Surgery [place] Summary Purpose Family History No Family History Records FoundNo Family History Records FoundNo Family History Records FoundNo Family History Records FoundNo Family History Records FoundNo Family History Records Found Advance Directives No Advanced Directives Records FoundNo Advanced Directives Records FoundNo Advanced Directives Records FoundNo Advanced Directives Records FoundNo Advanced Directives Records FoundNo Advanced Directives Records Found Procedure Findings Note HNO ID: [id number] Author: Gina Callejas Service: Orthopaedic Surgery Author Type: Physician Type: Operative Report Filed: 01/05/2019 8:07 PM Note Text: Operative note Patient name: Rudolph Carolina SURGERY/PROCEDURE DATE: 01/05/2019 INCISION/PROCEDURE START TIME: 2:46 PM INCISION CLOSE/PROCEDURE END TIME: 3:43 PM SURGEON(S)/PROCEDURALIST(S) AND POLE LIFT OPERATOR(S): Surgeon(s) and Role: * Mita Callejas - Primary Physician Pipe Liner: Cee Dawson (Pa) SURGERY/PROCEDURE(S): Right wrist volar ganglion cyst excision ANESTHESIA: General FINDINGS: Ganglion cyst emanating from the radiocarpal joint volarly ESTIMATED BLOOD LOSS: 0 ml SPECIMENS: Right wrist mass COMPLICATIONS: None PRE-OP/PRE-PROCEDURE DIAGNOSIS: Right wrist volar ganglion cyst POST-OP/POST-PROCEDURE DIAGNOSIS: see op note same Indications: Patient is a 28-year-old female with the above named diagnosis. Unfortunately she has failed conservative treatment and the mass is painful and symptomatic to the point that (more content not included)... Note HNO ID: [id number] Author: Gina Callejas Service: Orthopaedic Surgery Author Type: Physician Type: Brief Op Note Filed: 01/05/2019 4:06 PM Note Text: BRIEF OPERATIVE / PROCEDURE NOTE LOG ID: [id number] SURGERY/PROCEDURE DATE: 01/05/2019 INCISION/PROCEDURE START TIME: 2:46 PM INCISION CLOSE/PROCEDURE END TIME: 3:43 PM SURGEON(S)/PROCEDURALIST(S) AND POLE LIFT OPERATOR(S): Surgeon(s) and Role: * Mita Callejas - Primary Physician Pipe Liner: Cee Dawson (Pa) SURGERY/PROCEDURE(S): Right wrist volar ganglion cyst excision ANESTHESIA: General FINDINGS: Ganglion cyst emanating from the radiocarpal joint volarly ESTIMATED BLOOD LOSS: 0 ml SPECIMENS: Right wrist mass COMPLICATIONS: None PRE-OP/PRE-PROCEDURE DIAGNOSIS: Right wrist volar ganglion cyst POST-OP/POST-PROCEDURE DIAGNOSIS: see op note same SIGNATURE: Mita Callejas MD PATIENT NAME: Rudolph Carolina DATE: January 05, 2019 TIME: 4:05 PM PAGER/CONTACT #: Additional Source Comments INFORMATION SOURCE (unrecogn ized section and content) DATE CREATED AUTHOR 03/04/2018 [facility] DATE CREATED AUTHOR AUTHOR'S ORGANIZ ATION 03/07/2018 [email or web address] DATE CREATED AUTHOR AUTHOR'S ORGANIZ ATION 09/16/2018 [facility] DATE CREATED AUTHOR AUTHOR'S ORGANIZ ATION 02/24/2019 [facility] DATE CREATED AUTHOR AUTHOR'S ORGANIZ ATION 02/28/2022 [facility] DATE CREATED AUTHOR AUTHOR'S ORGANIZ ATION 12/20/2022 [facility] Care Team (unrecognized sect ion and content) Personnel Name: Moon Swift MD Address: [address] [place] [address]- REASON FOR VISIT (unrecogniz ed section and content) post op scriptsBilateral Kne e PainNo InformationRecheck Left KneeNo Information FOR RECORDS PERTAINING TO PATIENTS WHO ARE OR HAVE BEEN ENROLLED IN A CHEMICAL DEPENDENCY/SUBSTANCEABUSE PROGRAM, SOME INFORMATION MAY BE OMITTED. This clinical summary was aggregated from multiple sources. Caution should be exercised in using it in the provision of clinical care. This summary normalizes information from multiple sources, and as a consequence, information in this document may materially change the coding, format and clinical context of patient data. In addition, data may be omitted in some cases. CLINICAL DECISIONS SHOULD BE BASED ON THE PRIMARY CLINICAL RECORDS. [employer] [facility]. provides no warranty or guarantee of the accuracy or completeness of information in this document.
== END 2024-11-10 09:10 | disposition home or self-care (01) ==
LOC: RAD 09:12
PROVIDERS: PCP Family Medicine; Visit Provider Family Medicine
DX: M23.91 Unspecified internal derangement of right knee (principal); M25.461 Effusion, right knee; M22.41 Chondromalacia patellae, right knee
CPT/HCPCS: 73562; 73721

== ENCOUNTER 2024-12-12 16:24 | Emergency (ER) | payer OTHER, SELFPAY ==
--- OUTSIDE RECORDS SUMMARY | 2024-12-12 16:33 | XMS_ITS | CCD ---
Author Organization [facility] Inform ion [facility] Care Team Providers Care Office Machine Technician Name Role Phone Mariana, Beulah Breana Unavailable Unavailab le Mariana, Beulah Breana Unavailable Unavailab le Pam Zac Unavailable Unavailable Moon Swift Unavailable Unavailable Mariana, Beulah Breana Unavailable Unavailab Moon Ashraf Unavailable Unavailable Mariana, Beulah Breana Unavailable Unavailab Moon Ashraf Unavailable Unavailable Mariana, Beulah Breana Unavailable Unavailab Moon Ashraf Unavailable Unavailable PHYSICIAN, DEFAULT Unavailable Unavailable PHYSICIAN, DEFAULT Unavailable Unavailable Moon Swift Primary Care Physician Hilton Joshi Unavailable PAVEL BURNETTE Admitting Unavailable [...] tiZANidine; Translations: [tizanidine] Drug Allergy Weal (disorder) Archivas Other (2 sources) tiZANidine Drug Allergy 1 [facility] Repository Medications Current Medications Medication Drug [...] 4 hrs for 5 days Aug, Active [id number] 200 actuat albuterol 0.09 mg/actuat metered dose [...] 11-14-2020 Chronic Other aftercare (1 source) Other intermediate card tender (current) drug therapy; Translations: [OTH [facility] CURRENT DRUG THERAPY] Onset: 3 Episodic Other [...] Onset: 02-14-2022 Episodic Other aftercare (1 source) retirement (current) use of aspirin; Translations: [[facility] CURRENT USE OF ASPIRIN] Onset: 01-23-2022 Episodic [...] LUDIN REYES Date: 2022-12-18 14:02 Normal [facility] Covid-19 PCR (CVDTB)on 02-08 SARS-CoV-2 (COVID-19) RNA GIA+probe Ql (Unsp spec) Detected Critically abnormal NOT DETECTED [facility] Comment on above: Result Comment: This test is not yet approved or cleared by the [place] FDA. When there are no FDA-approved or cleared tests available, and other criteria are met, FDA can make tests available under an emergency access mechanism called an Emergency Use Authorization (EUA). The EUA for this test is supported by the Site Physician of Health and Human Service's (HHS's) declaration [...] be used). Performed By: #### C VDTB ####[facility] [address] [address]Dr. Adeel Hassan SYMPTOMATIC COVID-19 ANTIGEN on 03-06-2022 EUA Statement SEE BELOW Normal [facility] Comment on above: Result Comment: This [...] sooner. Performed By: #### C VDAGS #### [facility] [address], [place] [address] Dr. Adeel Hassan SARS-CoV-2 (COVID-19) RNA GIA+probe Ql (Unsp spec) Negative Normal NEGATIVE [facility] Comment on above: Performed By: #### C VDAGS #### [facility] [address] [address] [address] Adeel Hassan Ambulatory Visit Summaryon 0 [...] salpingectomy Vapes nicotine containing substance Aditya Baig [facility] Surgery Office/Clini c Noteon 02-27-2022 General [...] neoplasm of colon: Grandparent and Grandparent. Normal [facility] Comment on above: Result Comment: Elec tronically Signed By: NAHOMY HODGE, Leonidas Cuellar\Date and Time Signed: 02/27/22 16:32 EDT Pathology Noteon 02-09-2022 Pathology Note [id number]# 1.00CD:127 Normal [facility] Outside Colonoscopyon 2021 Outside Colonoscopy [id number] .00CD:127 Normal [facility] Lab Reportson 02-06-2022 Lab Reports [id number]#1 .00CD:127 Normal [facility] Covid-19 PCR (CVDTB)on 01-08 SARS-CoV-2 (COVID-19) RNA GIA+probe Ql (Unsp spec) Not detected Normal NOT DETECTED [facility] Comment on above: Result Comment: This test is not yet approved or cleared by the [place] FDA. When there are no FDA-approved or cleared tests available, and other criteria are met, FDA can make tests available under an emergency access mechanism called an Emergency Use Authorization (EUA). The EUA for this test is supported by the Site Physician of Health and Human Service's (HHS's) declaration [...] consistent with SARS-CoV-2. Performed By: #### [facility] #### [facility] [address] [place] [address] Dr. Adeel Hassan Pre-Certification Formon Pre-Certification Form [id number]# 1.00CD:127 Normal [facility] ACETAMINOPHENon 01-22-2022 Acetaminophen [Mass/Vol] ug/mL Critically low 10.0-30.0 [facility] Comment on above: Performed By: #### C MP, SALYC, ACET, ETH #### [facility] [address] [address] [address] Adeel Hassan CBC AUTO DIFFon 01-22-2022 BASO # 0.0 103/ul Normal 0.0-0.1 [facility] Comment on above: Performed By: #### C BC #### [facility] [address] [address] [address] Adeel Hassan Basophils/100 WBC (Bld) 0.3 % Normal 0.2-2.0 [facility] Comment on above: Performed By: #### C BC #### [facility] [address] [address] [address] Adeel Hassan EO # 0.1 103/ul Normal 0.0-0.7 [facility] Comment on above: Performed By: #### C BC #### [facility] [address] [place] [address] Dr. Adeel Hassan Eosinophils/100 WBC (Bld) 0.7 % Critically low 0.9-7.0 [facility] Comment on above: Performed By: #### C BC #### [facility] [address] [place] [address] Dr. Adeel Hassan Erythrocyte distribution width (RBC) [Ratio] 12.4 % Normal 11.0-15.0 [facility] Comment on above: Performed By: #### C BC #### [facility] [address] [place] [address] Dr. Adeel Hassan Hematocrit (Bld) [Volume fraction] 39.1 % Normal 36.0-48.0 [facility] Comment on above: Performed By: #### C BC #### [facility] [address] [place] [address] Dr. Adeel Hassan Hemoglobin (Bld) [Mass/Vol] 13.6 g/dL Normal 12.0-16.0 [facility] Comment on above: Performed By: #### C BC #### [facility] [address] [place] [address] Dr. Adeel Hassan IG # 0.03 10e3/ul Normal 0.00-0.03 [facility] Comment on above: Performed By: #### C BC #### [facility] [address] [place] [address] Dr. Adeel Hassan IG % 0.3 % Normal 0.0-0.5 [facility] Comment on above: Performed By: #### C BC #### [facility] [address] [place] [address] Dr. Adeel Hassan LYMPH # 2.1 103/ul Normal 1.2-3.8 [facility] Comment on above: Performed By: #### C BC #### [facility] [address] [place] [address] Dr. Adeel Hassan Lymphocytes/100 WBC (Bld) 20.8 % Normal 20.5-60.0 [facility] Comment on above: Performed By: #### C BC #### [facility] [address] [place] [address] Dr. Adeel Hassan MANUAL DIFF REQ NO Normal [facility] Comment on above: Performed By: #### C BC #### [facility] [address] [place] [address] Dr. Adeel Hassan MCH (RBC) [Entitic mass] 33.1 pg Normal 26.7-34.0 [facility] Comment on above: Performed By: #### C BC #### [facility] [address] [place] [address] Dr. Adeel Hassan MCHC (RBC) [Mass/Vol] 34.8 g/dL Normal 29.9-35.2 [facility] Comment on above: Performed By: #### C BC #### [facility] [address] [place] [address] Dr. Adeel Hassan MCV (RBC) [Entitic vol] 95.1 fL Normal 81.0-99.0 [facility] Comment on above: Performed By: #### C BC #### [facility] [address] [place] [address] Dr. Adeel Hassan MONO # 0.8 103/ul Normal 0.3-0.8 [facility] Comment on above: Performed By: #### C BC #### [facility] [address] [address] [address] Adeel Hassan Monocytes/100 WBC (Bld) 7.6 % Normal 1.7-12.0 [facility] Comment on above: Performed By: #### C BC #### [facility] [address] [address] [address] Adeel Hassan NEUT # 7.2 103/ul Critically high 1.4-6.[address] [facility] Comment on above: Performed By: #### C BC #### [facility] [address] [address] [address] Adeel Hassan Neutrophils/100 WBC (Bld) 70.3 % Normal 43.0-75.0 [facility] Comment on above: Performed By: #### C BC #### [facility] [address] [place] [address] Dr. Adeel Hassan Platelet mean volume (Bld) [Entitic vol] 8.4 fL Critically low 9.5-13.5 [facility] Comment on above: Performed By: #### C BC #### [facility] [address] [address] [address] Adeel Hassan PLT 269 103/ul Normal 150-450 [facility] Comment on above: Performed By: #### C BC #### [facility] [address] [place] [address] Dr. Adeel Hassan RBC 4.11 106/ul Critically low 4.20-5.[address] [facility] Comment on above: Performed By: #### C BC #### [facility] [address] [place] [address] Dr. Adeel Hassan WBC 10.2 103/ul Normal 4.0-11.0 [facility] Comment on above: Performed By: #### C BC #### [facility] [address] [place] [address] Dr. Adeel Hassan DRUG SCREEN RAPID (URINE)on 01-22-2022 AMP Negative Normal NEGATIVE [facility] Comment on above: Performed By: #### D RUGRPD ####[facility] [address] [id number]. Annamiguel angel Hassan BAR Negative Normal NEGATIVE [facility] Comment on above: Performed By: #### D RUGRPD ####[facility] [address] [address]Dr. Adeel Hassan BUP Negative Normal NEGATIVE [facility] Comment on above: Performed By: #### D RUGRPD ####[facility] [address] [address]Dr. Adeel Hassan BZO Negative Normal NEGATIVE [facility] Comment on above: Performed By: #### D RUGRPD ####[facility] [address] [place], [place] [address]Dr. Adeel Hassan JULIANNE Negative Normal NEGATIVE [facility] Comment on above: Performed By: #### D RUGRPD ####[facility] [address] [place], [place] [address]Dr. Adeel Hassan CUT-OFFS SEE BELOW Normal [facility] Comment on above: Result Comment: AMP (Amphetamine): 500ng/mL, BAR (Barbituates): 200 ng/mL, BZO (Benzodiazepines): 150 ng/mL, BUP (Buprenorphine): 10 ng/mL, JULIANNE (Cocaine): 150 ng/mL, mAMP (Methamphetamine): 500 ng/mL, MTD (Methadone): 200 ng/mL, OPI (Opiates): 100 ng/mL, OXY (Oxycodone): 100 ng/mL, PCP (Phencyclidine): 25 ng/mL, PPX (Propoxyphene): 300 ng/mL, THC (Cannabinoids): 50 ng/mL, TCA (Trycyclic Antidepressants): 300 ng/mL Performed By: #### D RUGRPD ####[facility] [address] [place], [place] [id number]. Adeel Hassan DRUG CUT HEADER DRUG CLASS TEST SYSTEM CUT-OFF CONCENTRATIONS ARE FOLLOWS: Normal [facility] Comment on above: Performed By: #### D RUGRPD ####[facility] [address] [place], [place] [address]Dr. Adeel Hassan mAMP Negative Normal NEGATIVE [facility] Comment on above: Performed By: #### D RUGRPD ####[facility] [address] [place] [address]Dr. Adeel Hassan MTD Negative Normal NEGATIVE [facility] Comment on above: Performed By: #### D RUGRPD ####[facility] [address] [place] [address]Dr. Adeel Hassan OPI Negative Normal NEGATIVE [facility] Comment on above: Performed By: #### D RUGRPD ####[facility] [address] [place] [address]Dr. Yimiguel angel Hassan OXY Negative Normal NEGATIVE [facility] Comment on above: Performed By: #### D RUGRPD ####[facility] [address] [place] [address]Dr. Adeel Hassan PCP Negative Normal NEGATIVE [facility] Comment on above: Performed By: #### D RUGRPD ####[facility] [address] [place] [address]Dr. Adeel Hassan PPX Negative Normal NEGATIVE [facility] Comment on above: Performed By: #### D RUGRPD ####[facility] [address] [place] [address]Dr. Adeel Hassan TCA Negative Normal NEGATIVE [facility] Comment on above: Performed By: #### D RUGRPD ####[facility] [address] [address]Dr. Adeel Hassan THC Positive Abnormal NEGATIVE [facility] Comment on above: Performed By: #### D RUGRPD ####[facility] [address] [address]Dr. Annamiguel angel Hassan ETHANOL (BLD ALC)on 01-23-20 22 ALC NOTE NOTE: 80 mg/dl is th e legal limit for a blood alcohol level Normal [facility] Comment on above: Performed By: #### C MP, SALYC, ACET, ETH #### [facility] [address] [address] [address] Adeel Hassan Ethanol [Mass/Vol] mg/dL Normal [facility] Comment on above: Performed By: #### C MP, SALYC, ACET, ETH #### [facility] [address] [place] [address] Dr. Adeel Hassan PROF 14(COMP METB)on 022 Albumin [Mass/Vol] 3.9 g/dL Normal 3.4-5.0 [facility] Comment on above: Performed By: #### C MP, SALYC, ACET, ETH #### [facility] [address] [place] [address] Dr. Adeel Hassan Albumin/Globulin [Mass ratio] 1.0 {ratio} Normal [facility] Comment on above: Performed By: #### C MP, SALYC, ACET, ETH #### [facility] [address] [place] [address] Dr. Adeel Hassan ALP [Catalytic activity/Vol] 84 U/L Normal 46-116 [facility] Comment on above: Performed By: #### C MP, SALYC, ACET, ETH #### [facility] [address] [place] [address] Dr. Adeel Hassan ALT [Catalytic activity/Vol] 45 U/L Normal 14-59 [facility] Comment on above: Performed By: #### C MP, SALYC, ACET, ETH #### [facility] [address] [place] [address] Dr. Adeel Hassan Anion gap [Moles/Vol] 16.1 mmol/L Normal [facility] Comment on above: Performed By: #### C MP, SALYC, ACET, ETH #### [facility] [address] [place] [address] Dr. Adeel Hassan AST [Catalytic activity/Vol] 23 U/L Normal 15-37 [facility] Comment on above: Performed By: #### C MP, SALYC, ACET, ETH #### [facility] [address] [place] [address] Dr. Adeel Hassan Bilirubin [Mass/Vol] 0.5 mg/dL Normal 0.2-1.0 [facility] Comment on above: Performed By: #### C MP, SALYC, ACET, ETH #### [facility] [address] [place] [address] Dr. Adeel Hassan Calcium [Mass/Vol] 8.9 mg/dL Normal 8.5-10.1 [facility] Comment on above: Performed By: #### C MP, SALYC, ACET, ETH #### [facility] [address] [address] [address] Adeel Hassan Chloride [Moles/Vol] 107 mmol/L Normal 98-107 [facility] Comment on above: Performed By: #### C MP, SALYC, ACET, ETH #### [facility] [address] [address] [address] Adeel Hassan CO2 [Moles/Vol] 24.8 mmol/L Normal 21.0-32.0 [facility] Comment on above: Performed By: #### C MP, SALYC, ACET, ETH #### [facility] [address] [address] [address] Adeel Hassan Creatinine [Mass/Vol] 0.71 mg/dL Normal 0.55-1.02 [facility] Comment on above: Performed By: #### C MP, SALYC, ACET, ETH #### [facility] [address] [address] [address] Adeel Hassan EGFR-AF [place] ISLANDER >60 Normal >=60 [facility] Comment on above: Performed By: #### C MP, SALYC, ACET, ETH #### [facility] [address] [address] [address] Adeel Hassan EGFR-NON AF [place]ER >60 Normal >=60 [facility] Comment on above: Performed By: #### C MP, SALYC, ACET, ETH #### [facility] [address] [address] [address] Adeel Hassan Globulin (S) [Mass/Vol] 4.0 g/dL Normal [facility] Comment on above: Performed By: #### C MP, SALYC, ACET, ETH #### [facility] [address] [address] [address] Adeel Hassan Glucose [Mass/Vol] 102 mg/dL Normal 74-106 [facility] Comment on above: Performed By: #### C MP, SALYC, ACET, ETH #### [facility] [address] [place] [address] Dr. Adeel Hassan Potassium [Moles/Vol] 3.9 mmol/L Normal 3.5-5.1 [facility] Comment on above: Performed By: #### C MP, SALYC, ACET, ETH #### [facility] [address] [place] [address] Dr. Adeel Hassan Protein [Mass/Vol] 7.9 g/dL Normal 6.4-8.2 [facility] Comment on above: Performed By: #### C MP, SALYC, ACET, ETH #### [facility] [address] [place] [address] Dr. Adeel Hassan Sodium [Moles/Vol] 144 mmol/L Normal 136-145 [facility] Comment on above: Performed By: #### C MP, SALYC, ACET, ETH #### [facility] [address] [place] [address] Dr. Adeel Hassan Urea nitrogen [Mass/Vol] 11.0 mg/dL Normal 7.0-18.0 [facility] Comment on above: Performed By: #### C MP, SALYC, ACET, ETH #### [facility] [address] [place] [address] Dr. Adeel Hassan Urea nitrogen/Creatinine [Mass ratio] 15.5 mg/mg Normal [facility] Comment on above: Performed By: #### C MP, SALYC, ACET, ETH #### [facility] [address] [place] [address] Dr. Adeel Hassan SALICYLATEon 01-22-2022 SALICYLATE 3.1 mg/dL Normal <=19.9 [facility] Comment on above: Performed By: #### C MP, SALYC, ACET, ETH #### [facility] [address] [place] [address] Dr. Adeel Hassan Consent for Procedure/Surger yon 01-11-2022 Consent for Procedure/Surgery [id number]#1 .00CD:127 Normal [facility] Facesheeton 01-11-2022 Facesheet [id number] .00CD:127 Normal [facility] Physician Referralon 022 Physician Referral [id number] .00CD:127 Normal [facility] CNCOon 02-24-2019 CNCO Letter Text Normal [facility] CNOVon 01-21-2019 CNOV Office Visit (LOORRM ) RUDOLPH CAROLINA ([id number]) 1990 F Date Time Provider Department 01/21/19 [...] Vic Dawson PA-C Referring Provider: MITA CALLEJAS [[id number]] Allergies As of Date: 01/21/2019 Noted Allergy Reaction TIZANIDINE 02/14/2017 16 - Unknown Comments: Muscle spasms Date Reviewed: 01/21/2019 Reviewed by: Fariba Madden Ma - Fully Assessed Reason for Visit: Post Op [174] 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 Author Type: Physician Top Precipitator Operator Helper Type: Progress Notes Filed: 01/21/2019 1:32 PM [...] [address] Vic Dawson PA-C [facility] ANES Amita 01-05-2019 ANES POST HNO ID: [id number] Author: Jean Rowan Service: Anesthesiology Author Type: [...] 2019 TIME: 4:38 PM PAGER/CONTACT #: Aditya [facility] ANES PREOPon 01-05-2019 ANES PREOP HNO ID: [id number] Author: Jean Rowan Service: Anesthesiology Author Type: [...] January 05, 2019 TIME: 1:18 PM CSN: [id number] [facility] NURSING PROGon 01-05-2019 Protein mass conc HNO ID: [id number] Author: Alva Hunt RN Service: ? Author [...] Alva Hunt RN In Department: AMBULATORY SURGERY [facility] PT EDon 01-05-2019 PT ED HNO ID: [id number] Author: Emily Gilliland RN Service: ? Author [...] Gilliland RN In Department: AMBULATORY SURGERY Normal [facility] SURGICAL PATHOLOGYon 019 SURGICAL PATHOLOGY Specimen originated from [facility] Specimen #: [id number] Submitting Physician: MITA CALLEJAS FINAL DIAGNOSIS Soft tissue, right volar wrist, excision - Ganglion cyst. CAROLYNE/JACOB/kedar 01/09/19 Albert Jaime M.D. (Electronic Signature) ____ SPECIMEN SUBMITTED A: [...] A1. ANUPAMA/sabina 01/06/2019 Gross examination performed at [facility], [address] [place] [address] Date of Report: 01/09/2019 Date of Procedure: 01/05/2019 Date of Receipt: 01/05/2019 Submitted by: MITA CALLEJAS Location: [facility] Diagnostic interpretation performed at [facility], [address] [place] [address]. CLIA Number: [id number] Normal [facility] NURSING PROGon 12-25-2018 Protein mass conc HNO ID: [id number] Author: Nirmala (Rn) Dennis, RN Service: General [...] RN December 25, 2018 6:59 PM Normal [facility] HISTORY PHYSICALon HISTORY PHYSICAL HNO ID: [id number] Author: Ange Jha Service: ? Author Type: [...] fevers. Neuro: No history of TIA's, stroke, PRODUCT MGR tumor, impaired sensorium, hemiplegia, paraplegia or quadraplegia. No neurological symptoms or problems. Respiratory: No history of current cough or dyspnea, or pneumonia in the past 6 weeks. No history of respiratory/pulmonary symptoms or problems. Cardiovascular: No history of HTN requiring medication, no history of angina, CHF, IN, cardiac surgery or stents. Denies rest pain, gangrene or revascularization/amp utation for PVD. No history of cardiovascular symptoms or problems. GI: Positive for GERD : No history of dysuria, frequency or incontinence,, stones or chronic kidney disease OIM CONSULTANT: Negative for abnormal vaginal bleeding, abnormal vaginal [...] TIME: 10:51 AM PAGER/CONTACT #: Aditya [facility] 10-29-2018 HOSP Patient:Linda Carolina MRN: Height:5' [...] entered within the past 30 days Normal [facility] CNOVon 10-28-2018 CNOV Office Visit (LOORRM ) RUDOLPH CAROLINA ([id number]) 1990 F Date Time Provider Department 10/28/18 [...] right wrist [M67.431] Order(s):SURGICAL REQUEST - ELECTIVE [[id number]] Order #: [id number]: 1 Prescriptions as of 10/28/2018 Sig: LANSOPRAZOLE [...] by MITA CALLEJAS MD on 10/28/18 Normal [facility] PROGRESSon 10-28-2018 Protein mass conc HNO ID: [id number] Author: Mita Callejas Service: (none) Author Type: [...] or word sense that escaped review. [facility] CNOVon 10-15-2018 CNOV Office Visit ([facility] ) RUDOLPH CAROLINA ([id number]) 1990 F Date Time Provider Department 10/15/18 1:00 PM GRACE FOUNTAIN [facility] During your visit today, we recorded the following information about you: Grace Fountain DO 10/15/2018 1:25 PM Signed Normal study. There is no electrodiagnostic evidence of neuropathy or radiculopathy in the right upper limb. Referring Provider: CEE DAWSON) [[id number]] Allergies As of Date: 10/15/2018 Noted Allergy [...] extremity [M79.601] Order(s):EMG(NEURO/NI ) [[id number]] Order #: [id number]: 1 Prescriptions as of 10/15/2018 Sig: LANSOPRAZOLE [...] by GRACE FOUNTAIN DO on 10/15/18 [facility] PROCEDUREon 10-15-2018 Protein mass conc HNO ID: [id number] Author: Grace Fountain Service: (none) Author Type: Physician Type: Procedures Filed: 10/15/2018 1:25 PM Note Text: Normal study. There is no electrodiagnostic evidence of neuropathy or radiculopathy in the right upper limb. 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 Images were reviewed with [...] of the patient and have reviewed the PA/ATHLETIC EQUIPMENT MANAGER note. My valladares findings include: History is [...] that escaped review. Referring Provider: MANSOOR CHANEY) [[id number]] Allergies As of Date: 10/07/2018 Noted Allergy Reaction TIZANIDINE 02/14/2017 16 - Unknown Comments: Muscle spasms Date Reviewed: 10/07/2018 Reviewed by: Mita Callejas - Fully Assessed Reason for Visit: Cyst [260] Primary Visit Diagnosis:Ganglion cyst of volar aspect of right wrist [M67.431] Other Visit Diagnosis:Right carpal tunnel syndrome [G56.01] Order(s):EMG(NEURO/NI ) [[id number]] Order #: [id number]: 1 FUTURE Prescriptions as of 10/07/2018 Sig: [...] by MITA CALLEJAS MD on 10/07/18 [facility] PROGRESSon 10-07-2018 Protein mass conc HNO ID: [id number] Author: Mita Callejas Service: (none) Author Type: [...] Frequency: Continuous Intervention: Reposition;Relaxation ;Positioning;Medicati on 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 Images were reviewed with [...] of the patient and have reviewed the PA/ATHLETIC EQUIPMENT MANAGER note. My valladares findings include: History is [...] or word sense that escaped review. [facility] Protein mass conc HNO ID: [id number] Author: Leonidas (Rt) Tanya Stubbs Service: (none) Author Type: Other Sales Support Worker Type: Progress Notes Filed: 10/07/2018 11:04 AM [...] Isidro October 07, 2018 11:04 AM [facility] XR WRIST 3V PA/LAT/OBL RTon 10-07-2018 [...] abnormality. IMPRESSION: No bone or articular abnormality. Orthotist/Prosthetist: PSCB Transcribe Date/Time: Oct 07 2018 11:27A Dictated by : JOHN LARA MD This examination was interpreted and the report reviewed and electronically signed by: JOHN LARA MD on Oct 07 2018 11:28AM EST [id number] [facility] CNOVon 09-17-2018 CNOV Office Visit (ORTHAL ) RUDOLPH CAROLINA ([id number]) 1990 F Date Time Provider Department 09/17/18 10:15 AM MANSOOR CHANEY)LEEANN During your visit today, we recorded the following information about you: Mansoor Chaney PA-C 09/17/2018 10:31 AM Signed SUBJECTIVE Rudolph Caroilna is a 27 year old female. [id number]. Worker's Compensation and legal considerations: none Ms. [...] OLIVIER TEST: negative STRENGTH: 5/5 biceps, triceps, luggage attendant, finger abduction, WE, WF, AND EPL STABILITY: all joints stable CREPITUS: negative NEUROLOGICAL EXAM: Sensory: sensation intact to light touch axillary, radial, median, AND ulnar distributions 2-point discrimination intact throughout all digits. Motor strength: equal bilaterally with 5/5 biceps, triceps, luggage attendant, finger abduction, WE, WF, thumb opposition, AND [...] corrected by editing. Referring Provider: MOON SWIFT [[id number]] Allergies As of Date: 09/17/2018 Noted Allergy [...] Status:Closed by MANSOOR CHANEY PA-C on 09/17/18 [facility] PROGRESSon 09-17-2018 Protein mass conc HNO ID: [id number] Author: Mansoor Mckinnon) Nigel Service: (none) Author Type: Physician Top Precipitator Operator Helper Type: Progress Notes Filed: 09/17/2018 10:31 AM Note Text: SUBJECTIVE Rudolph Carolina is a 27 year old female. Onqbl-bdtt-[id number]. Worker's Compensation and legal considerations: none Ms. [...] OLIVIER TEST: negative STRENGTH: 5/5 biceps, triceps, luggage attendant, finger abduction, WE, WF, AND EPL STABILITY: all joints stable CREPITUS: negative NEUROLOGICAL EXAM: Sensory: sensation intact to light touch axillary, radial, median, AND ulnar distributions 2-point discrimination intact throughout all digits. Motor strength: equal bilaterally with 5/5 biceps, triceps, luggage attendant, finger abduction, WE, WF, thumb opposition, AND [...] been identified and corrected by editing. [facility] PTOT Dischargeon 03-07-2018 PTOT Discharge Discharge [...] CULTURE,BACTERIALon URINE CULTURE,BACTERIAL PATIENT: RUDOLPH CAROLINA LOCATION: [facility] BILL#: [id number] : [birth year] AGE: SEX: F ORDERED BY: MALCOM PEÑA: URINE COLLECTED: 07/01/17 16:51ANTIBIOTICS AT KIM.: RECEIVED : 07/01/17 18:48SITE: Clean Catch/Voided R E S U L T S URINE CULTURE,BACTERIAL FINAL 07/02/17 12:06 NO GROWTH Normal [facility] Comment on above: Performed By: #### [facility] ####[id number] [place] [address] Vital Signs Date Time Vital Sign Value Performing Clinician Facility 01-10-2022 15:37-0400 Blood Pressure Location [facility] [place] 01-10-2022 15:37-0400 Diastolic blood pressure 76 mm[Hg] [facility] [place] 01-10-2022 15:37-0400 Heart rate 80 /min [facility] [place] 01-10-2022 15:37-0400 Respiratory rate 16 /min Leonidas NILL [facility] [place] 01-10-2022 15:37-0400 Systolic blood pressure 112 mm[Hg] [facility] [place] 09-14-2021 11:15-0500 Body height 160.02 cm Hilton Jos[facility] Other [facility] 09-14-2021 11:15-0500 Body mass index (BMI) [Ratio] 34.72 kg/m2 Hilton Joshi Other [facility] 09-14-2021 11:15-0500 Body weight 88.91 kg Hilton Olexa Other [facility] 08-15-2021 14:30-0500 Body height 160.02 cm Hilton Olexa Other [facility] 08-15-2021 14:30-0500 Body mass index (BMI) [Ratio] 34.86 kg/m2 Hilton Olexa Other [facility] 08-15-2021 14:30-0500 Body weight 89.27 kg Hilton Olexa Other [facility] Encounters Encounter Date Encounter Type Care Provider Facility Start: 12-18-2022 End: 12-18-2022 ambulatory KIA Li Facility:[facility] Start: 03-06-2022 End: 03-06-[address] MOON SWIFT . Facility:[facility] Start: 02-27-2022 End: 02-27-2022 Patient encounter procedure Leonidas MASON [facility] Start: 02-12-2022 Encounter for preprocedural laboratory examination DR LEONIDAS MASON . [facility] Start: 02-07-2022 End: 02-07-[address] [...] 11-07-2021 End: 11-07-2021 ambulatory Hilton Olexa Other [facility] Start: 11-07-2021 Telephone encounter Hilton Olexa [facility] Start: 09-14-2021 End: 09-14-2021 ambulatory Hilton Olexa Other [facility] Start: 09-14-2021 Postop follow up vis it related to original px Hilton Olexa [facility] Start: 09-04-2021 End: 09-04-2021 ambulatory Hilton Olexa Other [facility] Start: 09-04-2021 Telephone encounter Hilton Olexa [facility] Start: 08-29-2021 End: 08-29-2021 ambulatory Hilton Olexa Other [facility] Start: 08-29-2021 Telephone encounter Hilton Olexa [facility] Start: 08-15-2021 End: 08-15-2021 ambulatory Hilton Olexa Other [facility] Start: 08-15-2021 Office outpatient ne w 45 minutes Hilton Olexa [facility] [place] Start: 09-15-2018 End: 09-16-2018 Patient encounter procedure DEFAULT PHYSICIAN Facility:[facility] Start: 09-26-2017 Ambulatory Beulah Brenaa Mariana Facility:[facility] Start: 08-22-2017 Ambulatory Beulah Breana Mariana Facility:[facility] Start: 08-14-2017 Ambulatory Beulah Breana Mariana Facility:[facility] Start: 07-01-2017 Ambulatory Beulah Breana Mariana [facility] Procedures Date Procedure Procedure Detail [...] MEIER Payers Date Payer Category Payer Unknown [id number] 2.16.8 [id number] 1990 Unknown [id number] 2.16.84 [id number] 1990 Unknown [id number] 2.16.84 [id number] 1990 Unknown [id number] 2.16.84 [id number] 1990 Unknown [id number] 2.16.84 [id number] 1990 Unknown [id number] 2.16.84 [id number] 1990 Unknown [id number] 2.16.84 [id number] 1961 Self-pay 1961 Unknown [id number] 1961 Unknown [id number] Private Health Insurance [id number] Unknown Social History Date Type Detail Facility Start: 01-10-2022 Tobacco smoking status Ex-smoker (finding) [facility] Tobacco smoking status Smokeless tobacco user within last 30 days [facility] [place] Sex Assigned At Female [facility] Clinical Notes 08-15-2021 to 02-07-2022 Note [...] at age 43. CC: Meme Burnette CNP [facility] Signed and Approved by: DR LEONIDAS MASON . 02/08/2022 08:41:00 [facility] 01-10-2022 Note Chief Complaint consultation for painful, bleeding hemorrhoid HPI Staff 31 year old female presents on consultation from Meme Burnette GEOTHERMAL INSTALLER for painful, bleeding hemorrhoid x 6 months. [...] Change in inez (more content not included)... [facility] Comment on above: Result Comment: Elec tronically [...] Other specified postprocedural states (ICD-10 - Z98.890) [facility] 12-21-2021 Evaluation note* Encounter Date Diagnosis Assessment Notes Treatment Notes Treatment Clinical Notes Aug, Other specified postprocedural states (ICD-10 - Z98.890) [facility] 12-07-2021 Evaluation note* Encounter Date Diagnosis [...] We discussed that this may be a intermediate card tender problem. Discussed potential for surgical lateral release if needed in the future. Aug, Acute pain of left knee (ICD-10 - M25.562) Aug, Acute pain of right knee (ICD-10 - M25.561) [facility] Other Evaluation + Plan note No data available for this section [facility] [place] Evaluation noteNo InformationNort [facility] Other History general Narrative - Reported* Type [...] removal right wrist Hospitalization History see above [facility] History general Narrative - Reported* Type [...] medial femoral condyle Hospitalization History see above [facility] Hospital Discharge instructions No data available for this section [facility] [place] Progress note No data available for this section [facility] [place] Summary Purpose Family History No Family History Records FoundNo Family History Records FoundNo Family History Records FoundNo Family History Records FoundNo Family History Records FoundNo Family History Records Found Advance Directives No Advanced Directives Records FoundNo Advanced Directives Records FoundNo Advanced Directives Records FoundNo Advanced Directives Records FoundNo Advanced Directives Records FoundNo Advanced Directives Records Found Procedure Findings Note HNO ID: [id number] Author: iGna Callejas Service: Orthopaedic Surgery Author Type: Physician Type: Operative Report Filed: 01/05/2019 8:07 PM Note Text: Operative note Patient name: Rudolph Carolina SURGERY/PROCEDURE DATE: 01/05/2019 INCISION/PROCEDURE START TIME: 2:46 PM INCISION CLOSE/PROCEDURE END TIME: 3:43 PM SURGEON(S)/PROCEDURALIST(S) AND COMPUTER FORENSICS INVESTIGATOR(S): Surgeon(s) and Role: * Mita Callejas - Primary Physician Top Precipitator Operator Helper: Cee Dawson (Pa) SURGERY/PROCEDURE(S): Right wrist volar [...] (more content not included)... Note HNO ID: [id number] Author: Gina Callejas Service: Orthopaedic Surgery Author Type: Physician Type: Brief Op Note Filed: 01/05/2019 4:06 PM Note Text: BRIEF OPERATIVE / PROCEDURE NOTE LOG ID: [id number] SURGERY/PROCEDURE DATE: 01/05/2019 INCISION/PROCEDURE START TIME: 2:46 PM INCISION CLOSE/PROCEDURE END TIME: 3:43 PM SURGEON(S)/PROCEDURALIST(S) AND COMPUTER FORENSICS INVESTIGATOR(S): Surgeon(s) and Role: * Mita Callejas - Primary Physician Top Precipitator Operator Helper: Cee Dawson (Pa) SURGERY/PROCEDURE(S): Right wrist volar [...] section and content) DATE CREATED AUTHOR 03/04/2018 [facility] DATE CREATED AUTHOR AUTHOR'S ORGANIZ ATION 03/07/2018 [employer] DATE CREATED AUTHOR AUTHOR'S ORGANIZ ATION 09/16/2018 [facility] DATE CREATED AUTHOR AUTHOR'S ORGANIZ ATION 02/24/2019 [facility] DATE CREATED AUTHOR AUTHOR'S ORGANIZ ATION 02/28/2022 [facility] DATE CREATED AUTHOR AUTHOR'S ORGANIZ ATION 12/20/2022 [facility] Care Team (unrecognized sect ion and content) Personnel Name: Moon Swift MD Address: [address] [place] [address]- REASON FOR VISIT (unrecogniz ed section and [...] BE BASED ON THE PRIMARY CLINICAL RECORDS. [employer] [facility]. provides no warranty or guarantee of the accuracy or completeness of information in this document.
[2024-12-12 16:34] VITALS: BP 115/71; PULSE 86; TEMP 37.1; O2SAT 97; BMI 31.0
--- NOTE | 2024-12-12 16:47 | ED_ITS ---
Review of Systems ROS Constitutional Denies: fever or chills Ears, nose, mouth, and throat Denies: throat pain or neck pain Respiratory Denies: shortness of breath Gastrointestinal Denies: nausea or vomiting Musculoskeletal Denies: back pain, neck pain or extremity pain Integumentary/Breast Denies: rash Neurological Reports: numbness in extremities Hematologic/Lymphatic Denies: easy bruising or easy bleeding HPI HPI - Trauma General Chief Complaint: Extremity Injury, Upper Stated Complaint: Extremity Injury, Upper Time Seen by Provider: 12/12/24 16:42 Source: patient Mode of arrival: walk-in History of Present Illness HPI narrative: Patient is a 34-year-old female who presents to the emergency department for pain in the left chest wall after an injury at a trampoline park. She states she ran into a wall that you can bounce back from with her left arm outstretched up over her head. She states when she hit the wall, she felt a pop in the left chest wall. She states she immediately noticed numbness and tingling to the left arm which has now resolved. She denies any other associated injuries. She is ambulatory drove herself to the ER. She has no concern for . She reports diffuse pain on the left chest wall since the injury several hours ago. Related Data Previous Rx's ?Medication ?Instructions ?Recorded hydrocodone 5 mg-acetaminophen 325 1 tab PO Q6H PRN pain 3 days #12 12/12/24 mg tablet tabs ketorolac 10 mg tablet 10 mg PO TID PRN pain #10 tabs 12/12/24 methocarbamol 750 mg tablet 750 mg PO TID PRN pain #20 tabs 12/12/24 Allergies Allergy/AdvReac Type Severity Reaction Status Date / Time tizanidine (From Zanaflex) AdvReac Mild Muscle Pain Verified 12/12/24 16:34 Opioid HPI Opioid Management Most Recent Pain and Opioid Data: Last NOV Pain Assessment 12/12/24 16:58 PFSH PFSH Social History Little interest or pleasure in doing things: not at all Feeling down, depressed, or hopeless: not at all Exam Narrative Exam Narrative: Gen.: Awake, alert, in no distress Head: Normocephalic, atraumatic ENT: Moist mucous membranes Respiratory: No respiratory distress, lungs clear bilaterally, no ecchymosis or crepitance of the chest wall Cardio: Regular rate and rhythm Extremities: Moves extremities equally, no injuries noted Psych: Normal mood and affect Neuro: No focal neuro deficit Skin: Warm, dry, intact Constitutional Vital Signs, click to edit/add: Last Vital Signs Temp 98.7 F 12/12/24 16:34 Pulse 86 12/12/24 16:34 Resp 16 12/12/24 16:34 BP 115/71 12/12/24 16:34 Pulse Ox 97 12/12/24 16:34 O2 Del Method Room Air 12/12/24 16:34 Course Vital Signs Vital signs: Vital Signs Temperature 98.7 F 12/12/24 16:34 Pulse Rate 86 12/12/24 16:34 Respiratory Rate 16 12/12/24 16:34 Blood Pressure 115/71 12/12/24 16:34 Pulse Oximetry 97 12/12/24 16:34 Oxygen Delivery Method Room Air 12/12/24 16:34 Temperature 98.7 F 12/12/24 16:34 Pulse Rate 86 12/12/24 16:34 Respiratory Rate 16 12/12/24 16:34 Blood Pressure 115/71 12/12/24 16:34 Pulse Oximetry 97 12/12/24 16:34 Oxygen Delivery Method Room Air 12/12/24 16:34 MDM - Trauma MDM Narrative Medical decision making narrative: X-rays of the ribs and chest with no obvious rib fracture or pneumothorax. Patient is hemodynamically stable. She was treated with Toradol in the ER she is driving herself home. There is significant delay with obtaining an official read from the radiologist, I made the patient aware of this and I will contact her personally if there is any abnormality noted on the official read. She is treated for pain for home. Follow-up with her PCP and return to the ER if symptoms change or worsen. SUPERVISED APC VISIT, PHYSICIAN ATTESTATION: Based on the medical record the care appears appropriate. ? Medical Records Attestation: I reviewed the patient's medical records. Imaging Data Chest x-ray: Attestation: I have reviewed the pertinent imaging results. Discharge Plan Discharge Chief Complaint: Extremity Injury, Upper Clinical Impression: Contusion of left chest wall Patient Disposition: Home, Self-Care Time of Disposition Decision: 18:35 Condition: Good Prescriptions / Home Meds: New hydrocodone-acetaminophen 5-325 mg tablet 1 tab PO Q6H PRN (Reason: pain) 3 Days Qty: 12 0RF Rx Instructions: DX: R07.81 ketorolac 10 mg tablet 10 mg PO TID PRN (Reason: pain) Qty: 10 0RF methocarbamol 750 mg tablet 750 mg PO TID PRN (Reason: pain) Qty: 20 0RF Print Language: Mauritanian Instructions: Contusion in Adults (ED) Referrals: Prosper Swift MD [Primary Care Provider] - 1 week
[2024-12-12] MEDS: KETOROLAC TROMETHAMINE 10 MG TABLET PO (16:58)
[2024-12-12] MEDS: METHOCARBAMOL 500 MG TABLET 1000 MG PO (18:47)
[2024-12-12] MEDS: HYDROCODONE/ACET 5-325 MG TABLET 2 TAB PO (18:47)
== END 2024-12-12 18:51 | disposition home or self-care (01) ==
PROVIDERS: Emergency Provider Emergency Medicine; PCP Family Medicine
DX: S20.212A Contusion of left front wall of thorax, initial encounter (principal); W22.01XA Walked into wall, initial encounter; Y93.89 Activity, other specified
CPT/HCPCS: 71101; 99283

== ENCOUNTER 2024-12-21 15:24 | Outpatient (OUT) | payer OTHER, SELFPAY ==
--- NOTE | 2024-12-21 15:25 | XR_ITS ---
The [place] [id number] Patient Name: RUDOLPH GAMINO MRN: [id number] date: 1990 Sex: F Assigned Patient Location: [facility] Current Patient Location: [facility] Accession/Order Number: [id number] Exam Date: 12/21/2024 17:02 Report Date: 12/21/2024 17:03 At the request of: MOON ADKINS MD Procedure: XR ribs LT min 3V w CXR1V Left Rib series with Single View Chest HISTORY: Fell. Left chest pain. COMPARISON: None MEDIASTINUM: Cardiac, mediastinal hilar silhouettes are within normal limits. LUNGS AND PLEURA: No acute lung process, pleural effusion or pneumothorax identified. ACUTE FINDINGS: No displaced rib fracture identified. DEGENERATIVE CHANGE: Unremarkable SOFT TISSUE: Unremarkable POSTOP CHANGES: None XR/XR ribs LT min 3V w CXR1V IMPRESSION: No displaced rib fracture. No acute chest findings. Impression dictated by: Reyes Sarkar M.D.12/21/2024 5:03 PM Dictation Location: [place] [address] Electronically authenticated by: [id number] Date: 12/21/2024 17:03
== END 2024-12-21 15:25 | disposition home or self-care (01) ==
PROVIDERS: PCP Family Medicine; Visit Provider Family Medicine
DX: R07.89 Other chest pain (principal)
CPT/HCPCS: 71101